=== PATIENT | female | born 1955 | race Caucasian/White ===

== ENCOUNTER 2017-05-06 05:39 | Inpatient (IN) | payer MEDICARE ==
--- NOTE | 2017-05-01 17:10 | HP ---
HISTORY AND PHYSICAL: DATE OF ADMISSION/SURGERY: 05/06/17 DATE OF OFFICE VISIT: 04/30/17 SURGEON: Tamara Ferraro MD * (DICTATED BY CEDRIC COHEN) PROCEDURE: Left total knee arthroplasty. CHIEF COMPLAINT: Left knee pain. HISTORY OF PRESENT ILLNESS: Ms. Mora is a 61-year-old female with complaints of left knee pain. She has failed conservative management and elected to proceed with a left total knee arthroplasty, which is scheduled for 05/06/[address] Ferraro. PAST MEDICAL HISTORY: Epilepsy, hypothyroidism, history of breast cancer, depression, anxiety. PAST SURGICAL HISTORY: Left breast surgery, left temporal lobectomy, and valgus nerve stimulator. CURRENT MEDICATIONS: 1. Methimazole 10 mg daily. 2. Lamotrigine 200 mg twice daily. 3. Multivitamin. 4. Zonisamide 400 mg daily. 5. Gabapentin 600 mg 3 times a day. 6. Viibryd 40 mg every morning. 7. Latuda 40 mg every day. 8. Exemestane 25 mg daily. 9. Naproxen 500 mg twice daily. 10. Percocet 10/325 as needed. ALLERGIES: To PENICILLIN, KEFLEX, and CODEINE causes vomiting. FAMILY HISTORY: Cancer and heart disease. SOCIAL HISTORY: She is a 61-year-old female. She lives with her . She says she smokes less than a half a pack a day, uses occasional alcohol. Denies use of drugs. REVIEW OF SYSTEMS: A complete 14-point review of systems was reviewed with the patient, it was positive for seizure disorder, hypothyroidism. She denies a history of DVT, PE, hepatitis C, HIV, or anesthesia problems. PHYSICAL EXAMINATION GENERAL: She is well developed, well nourished, in no acute distress. VITAL SIGNS: She stands 5 feet 3 inches tall, weighs 203 pounds. Her blood pressure is 104/68, her heart rate is 76. HEENT: Normocephalic, atraumatic. NECK: Supple. No palpable lymph nodes. PULMONARY: Lungs are clear to auscultation bilaterally. CARDIO: Regular rate and rhythm. Strong S1, S2. ABDOMEN: Soft, nontender, and nondistended. MUSCULOSKELETAL: Left lower extremity, the skin is intact. There are no open wounds or abrasions. She has some tenderness over the medial and lateral joint line. 10 to 120 degrees of flexion. 2+ dorsalis pedis pulses. Her lower extremity muscle group strengths are intact at 5/5. She has intact sensation. NEUROLOGICAL: She is alert and oriented x3. Cranial nerves II through XII are intact. ASSESSMENT AND PLAN: Ms. Mora is a 61-year-old female with complaints of left knee pain secondary to end-stage osteoarthritis. She has failed conservative management and elected to proceed with a left total knee arthroplasty, which is scheduled for 05/06/[address] Ferraro discussed the risks and benefits of the surgery at today's visit, and all of her questions were answered. Coumadin was sent to her pharmacy for postoperative DVT prophylaxis. She has a prescription for Percocet and Colace at home. She will follow up with Dr. Ferraro in 2 weeks after the surgery. CEDRIC COHEN [id number]/[facility] #: [id number] HALIE
[~2017-05-06 05:39] MED LIST: Buffered Lidocaine 0.9% SYRIN* 5 ML/SYR SYRINGE INTRADERM ONE
--- OUTSIDE RECORDS SUMMARY | 2017-05-06 05:44 | XMS REPORT ---
:1955 External Reference #:[id number] Author Organization [facility] Address [address] [address] Phone [phone] Care Team Providers Name Role Phone Suri Hodge MD Primary Care Physician Unavailable Payers Type Date Identification Numbers Payment Provider Subscriber Health Maintenance Effective: Policy Number: Medicare Junior Roger (O) 04/28/2015 [id number] o Group Number: [id number] [address] [address] PayID: [id number] [place] [address] Problems Date Description Provider Status Onset: 10/22/2011 Multiple joint pain Caitlin Ng M.D., FACP Active Onset: 10/22/2011 Seizure Caitlin Ng M.D., FACP Active Onset: 10/22/2011 Pure hypercholesterolemia Caitlin Ng M.D., FACP Active Onset: 10/22/2011 Malaise and fatigue Caitlin Ng M.D., FACP Active Onset: 10/22/2011 Benign essential hypertension Caitlin Ng M.D., FACP Active Onset: 10/22/2011 Depressive disorder Caitlin Ng M.D., FACP Active Onset: 04/07/2017 Localized, primary osteoarthritis Tamara Ferraro M.D. 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 Cigarette Use Patient is a current cigarette smoker, smokes every day Cigarette Use Pack Years - 36 ETOH Use Occasionally consumes alcohol Smoking Patient is a current smoker, smokes every day Exercise Type/Frequency Exercises regularly Allergies, Adverse Reactions, Alerts Date Description Reaction Status Severity Comments 10/22/2011 Penicillin Urticaria active Moderate to Severe 10/22/2011 Keflex Urticaria active Moderate to Severe 11/05/2011 Codeine Nausea and Vomiting active Mild to Moderate Medications Medication Date Status Form Strength Qnty SIG Indications Ordering Provider Coumadin 04/30 Active Tablets 2mg 90tab take 1-3 s tabs by Ronan, mouth at 5 M.D. at night as directed Methimazole 12/10 Active Tablets 10mg 90tab 1 po qd- 242.90 Caitlin s mendy Lebron M.D., 7.5mg FACP Lamotrigine Active Tablets 200mg 90tab 1 po bid Unknown /0000 s Multi-Vitamin Active Tablets 1 po qd Unknown / Zonisamide Active Capsules 400mg Unknown /0000 Gabapentin Active Tablets 600mg take one Unknown 0000 tablet by mouth three times a day Viibryd Active Tablets 40mg take 1 tab Unknown /0000 every in the morning Latuda Active Tablets 40mg 1 by mouth Unknown /0000 every day Examestane Active 25mg Unknown /0000 Naproxen Active Tablets 500mg 1 tablet Unknown /0000 with food by mouth twice a day Oxycodone-Acetamino Active Tablets 10-325mg 90tab take 1 Tamara s tablet by Ronan, mouth M.D. every 6 hours as needed for pain Bactrim DS 04/23 Hx Tablets 800-160mg 6tabs take 1 by mouth Ronan, - twice a M.D. 04/29 day for days Vimpat Hx Tablets 50mg 2 po bid Unknown /0000 - 04/04 Fluoxetine Hx Capsules 20mg 30cap 1 po qd Unknown /0000 s - 04/04 Fluoxetine Hx Capsules 10mg 90cap 1 by mouth Unknown /0000 s once daily - 04/04 Citalopram Hx Tablets 10mg 90tab 1 po qd Unknown Hydrobromide /0000 s - 04/04 Dexmethylphenidate Hx Tablets 10mg 30tab take 1 Unknown HCL /0000 s tablet by - mouth 04/04 daily for attention deficit disorder. Amphetamine/Dextroa Hx Tablets 5mg Unknown mphetamine / - 04/04 Clonazepam Hx Tablets 0.5mg 60tab 1 po q Am, Unknown /0000 s 1/2 tab at - noon, 2 04/04 tabs at Fish Oil Hx Capsules 1000mg 1 po qd Unknown - 04/04 Vit D3 Hx Unknown / - 04/04 Aspirin Hx Tablets 325mg 1 po qd - 04/04 Ranitidine HCL Hx Tablets 150mg 28tab take one Unknown /0000 s tablet by - mouth 04/04 twice day Immunizations CPT Code Status Date Vaccine Lot # [id number] Given 12/10/2005 Tetanus And Diptheria (Td) For Adult Use Preservative Free 00069 Given 12/10/2005 Tetanus And Diptheria (Td) For Adult Use Preservative Free Vital Signs Date Vital Result Comment 04/30/2017 Height 63 inches 5'3" Weight 203.00 lb Heart Rate 76 /min BP Systolic 104 mmHg BP Diastolic 68 mmHg Body Temperature 98.5 F BMI (Body Mass Index) 36.0 kg/m2 04/07/2017 Height 62 inches 5'2" Weight 175.00 lb per patient BP Systolic 118 mmHg BP Diastolic 82 mmHg Respiratory Rate 14 /min Body Temperature 99.3 F Pain Level 8 BMI (Body Mass Index) 32.0 kg/m2 12/11/2011 Height 62 inches 5'2" Weight 182.00 lb Heart Rate 88 /min BP Systolic Sitting 128 mmHg BP Diastolic Sitting 70 mmHg BMI (Body Mass Index) 33.3 kg/m2 12/04/2011 Height 62 inches 5'2" Weight 182.00 lb Heart Rate 88 /min BP Systolic Sitting 130 mmHg BP Diastolic Sitting 70 mmHg BMI (Body Mass Index) 33.3 kg/m2 11/05/2011 Height 62 inches 5'2" Weight 181.00 lb Heart Rate 88 /min BP Systolic Sitting 118 mmHg BP Diastolic Sitting 80 mmHg BMI (Body Mass Index) 33.1 kg/m2 10/22/2011 Height 62 inches 5'2" Weight 178.50 lb Heart Rate 96 /min BP Systolic Sitting 128 mmHg BP Diastolic Sitting 80 mmHg Body Temperature 99.1 F BMI (Body Mass Index) 32.6 kg/m2 Results Test Date Test Result H/L Range Note CBC Auto Diff 04/23/2017 White Blood Count 12.6 10^3/uL High 3.5-10.8 Red Blood Count 4.31 10^6/uL 4.0-5.4 Hemoglobin 13.5 g/dL 12.0-16.0 Hematocrit 40 % 35-47 Mean Corpuscular Volume 92 fL 80-97 Mean Corpuscular Hemoglobin 31 pg 27-31 Mean Corpuscular HGB Conc 34 g/dL 31-36 Red Cell Distribution Width 15 % 10.5-15 Platelet Count 435 10^3/uL 150-450 Mean Platelet Volume 7 um3 Low 7.4-10.4 Abs Neutrophils 9.4 10^3/uL High 1.5-7.7 Abs Lymphocytes 2.3 10^3/uL 1.0-4.8 Abs Monocytes 0.7 10^3/uL 0-0.8 Abs Eosinophils 0.1 10^3/uL 0-0.6 Abs Basophils 0.1 10^3/uL 0-0.2 Abs Nucleated RBC 0 10^3/uL Granulocyte % 74.6 % 38-83 Lymphocyte % 18.2 % Low 25-47 Monocyte % 5.3 % 1-9 Eosinophil % 1.1 % 0-6 Basophil % 0.8 % 0-2 Nucleated Red Blood Cells % 0 Comp Metabolic Panel 04/23/2017 Sodium 136 mmol/L 133-145 Potassium 4.2 mmol/L 3.5-5.0 Chloride 103 mmol/L 101-111 Co2 Carbon Dioxide 28 mmol/L 22-32 Anion Gap 5 mmol/L 2-11 Glucose 88 mg/dL 70-100 Blood Urea Nitrogen 17 mg/dL 6-24 Creatinine 0.86 mg/dL 0.51-0.95 BUN/Creatinine Ratio 19.8 8-20 Calcium 9.2 mg/dL 8.6-10.3 Total Protein 6.5 g/dL 6.4-8.9 Albumin 4.0 g/dL 3.2-5.2 Globulin 2.5 g/dL 2-4 Albumin/Globulin Ratio 1.6 1-3 Total Bilirubin 0.30 mg/dL 0.2-1.0 Alkaline Phosphatase 89 U/L 34-104 Alt 11 U/L 7-52 Ast 15 U/L 13-39 Egfr Non- 67.3 >60 Egfr 86.6 >60 1 Type & Screen 04/23/2017 Patient Blood Type A Positive Antibody Screen NEGATIVE Inr/Protime 04/23/2017 Inr 0.93 0.77-1.02 2 Laboratory test finding 04/23/2017 Partial Thrombo Time 31.0 seconds 26.0 -36.3 PTT Urinalysis Profile 04/23/2017 Urine Color Yellow Urine Appearance Cloudy Urine Specific Cameron 1.012 1.010-1.030 Urine pH 7.0 5-9 Urine Urobilinogen Negative Negative Urine Ketones Negative Negative Urine Protein Negative Negative Urine Leukocytes Trace Negative Urine Blood Negative Negative Urine Nitrite Positive Negative Urine Bilirubin Negative Negative Urine Glucose Negative Negative Urine White Blood Cell Trace(0-5/hpf) Absent Urine Red Blood Cell Trace(0-2/hpf) Absent Urine Bacteria 1+ Absent Urine Squamous Epithelial Cell Present Absent Urine Yeast Present Absent Urine Culture And 04/23/2017 Urine Culture SEE RESULT BELOW 3 Sensitivities Laboratory test finding 01/02/2012 Thyroxine Free 0.73 ng/dL 0.61-1.24 T3 Total 2.00 NG/ML High 0.5-1.7 T3 Free 3.42 pg/mL 2.39-6.79 TSH 0.07 MIU/ML Low 0.34-5.60 Laboratory test finding 12/27/2011 TSH 0.09 MIU/ML Low 0.34-5.60 Thyroxine Free 0.80 ng/dL 0.61-1.24 CBC With Manual Diff 12/27/2011 White Blood Count 6.5 CUMM 4.8-10.8 Red Cell Count 4.54 CUMM 4.2-5.4 Hemoglobin 14.1 g/dL 12.0-16.0 Hematocrit 41 % 35-47 Mean Corpuscular Volume 89 um3 79-97 Mean Corpuscular Hemoglob 31 pg 27-31 Mean Corpuscular HGB Cone 35 g/dL 32-36 Redcell Distribution WDTH 14 % 10.5-15 Platelet Count 437 CUMM 150-450 Mean Platelet Volume 7.2 um3 Low 7.4-10.4 Absolute Neutrophil Count 3.0 1.5-7.7 Polysegmented Neutrophil 39 % 38-83 Lymphocyte 41 % 25-47 Monocyte 15 % High 0-13 Eosinophil 4 % 0-6 Basophil 1 % 0-2 RBC Morphology NORMAL Laboratory test finding 11/18/2011 Rheumatoid Factor < 15 IU/mL < 15 4 Manual Differential 11/18/2011 Polysegmented Neutrophil 29 % Low 38-83 Band Neutrophil 1 % 0-8 Lymphocyte 61 % High 25-47 Monocyte 7 % 0-13 Eosinophil 1 % 0-6 Basophil 1 % 0-2 Hypochromasia SLIGHT Manual Diff Comments (SEE NOTE) 5 CBC Auto Diff 11/18/2011 White Blood Count 6.4 CUMM 4.8-10.8 Red Cell Count 3.61 CUMM Low 4.2-5.4 Hemoglobin 11.3 g/dL Low 12.0-16.0 Hematocrit 32 % Low 35-47 Mean Corpuscular Volume 88 um3 79-97 Mean Corpuscular Hemoglob 31 pg 27-31 Mean Corpuscular HGB Cone 35 g/dL 32-36 Redcell Distribution WDTH 14 % 10.5-15 Platelet Count 189 CUMM 150-450 Mean Platelet Volume 7.5 um3 7.4-10.4 Absolute Neutrophil Count 2.4 1.5-7.7 Laboratory test 11/18/2011 C Reactive Protein < 0.5 mg/dL Less Than 0.5 finding Basic Metabolic Panel 11/18/2011 Sodium 135 mmol/L 135-145 Potassium 3.9 mmol/L 3.5-5.0 Chloride 103 mmol/L 101-111 Co2 (Carbon Dioxide) 27.0 mmol/L 22-32 Anion Gap 5.0 mmol/L 2-11 6 Glucose 106 mg/dL High 70-100 BUN 9 mg/dL 6-24 Creatinine 0.8 mg/dL 0.50-1.40 One Over Creatinine 1.25 BUN/Creatinine Ratio 11.3 8-20 Calcium 9.6 mg/dL 8.1-9.9 eGFR Non- 74.5 > 60 eGFR 95.8 > 60 7 Laboratory test finding 11/05/2011 Thyroid Stimulating Igg <1.0 <= 1.3 8 Thyroxine Free 1.05 ng/dL 0.61-1.24 TSH 0.02 MIU/ML Low 0.34-5.60 T-Uptake 30 % 20 - 37 9 Comp Metabolic Panel 10/22/2011 Sodium 138 mmol/L 135-145 Potassium 5.3 mmol/L High 3.5-5.0 Chloride 103 mmol/L 101-111 Co2 (Carbon Dioxide) 29.0 mmol/L 22-32 Anion Gap 6.0 mmol/L 2-11 10 Glucose 103 mg/dL High 70-100 BUN 5 mg/dL Low 6-24 Creatinine 0.7 mg/dL 0.50-1.40 One Over Creatinine 1.42 BUN/Creatinine Ratio 7.1 Low 8-20 Calcium 10.0 mg/dL High 8.1-9.9 Total Protein 6.3 GM/DL 6.2-8.1 Albumin 4.1 GM/DL 3.6-5.4 Globulin 2.2 GM/DL 2-4 Albumin/Globulin Ratio 1.9 1-3 Bilirubin Total 0.4 mg/dL 0.4-1.5 11 Alkaline Phosphatase 98 U/L 30-110 Alt (SGPT) 21 U/L 14-54 Ast (Sgot) 18 U/L 12-42 eGFR Non- 86.9 > 60 eGFR 111.7 > 60 12 Laboratory test 10/22/2011 C Reactive Protein < 0.5 mg/dL Less Than 0.5 finding CBC With Manual Diff 10/22/2011 White Blood Count 7.3 CUMM 4.8-10.8 Red Cell Count 4.57 CUMM 4.2-5.4 Hemoglobin 14.0 g/dL 12.0-16.0 Hematocrit 41 % 35-47 Mean Corpuscular Volume 90 um3 79-97 Mean Corpuscular Hemoglob 31 pg 27-31 Mean Corpuscular HGB Cone 34 g/dL 32-36 Redcell Distribution WDTH 14 % 10.5-15 Platelet Count 475 CUMM High 150-450 Mean Platelet Volume 7.5 um3 7.4-10.4 Absolute Neutrophil Count 3.7 1.5-7.7 Polysegmented Neutrophil 61 % 38-83 Lymphocyte 27 % 25-47 Monocyte 6 % 0-13 Eosinophil 4 % 0-6 Basophil 2 % 0-2 Anisocytosis SLIGHT Laboratory test finding 10/22/2011 TSH 0.04 MIU/ML Low 0.34-5.60 Laboratory test finding 02/24/2007 T3 Free 3.32 pg/mL 2.39-6.79 Free Thyroxine 0.74 NG/ML 0.61-1.24 13 T3 Total 1.60 NG/ML 0.5-1.7 TSH 0.18 MIU/ML Low 0.34-5.60 1 Because ethnic data is not always readily available, this report includes an eGFR for both -Americans and non- Americans. The National Kidney Disease Education Program (NKDEP) does not endorse the use of the MDRD equation for patients that are not between the ages of 18 and 70, are , have extremes of body size, muscle mass, or nutritional status, or are non- or non-. According to the National Kidney Foundation, irrespective of diagnosis, the stage of the disease is based on the level of kidney function: Stage Description GFR(mL/min/1.73 m(2)) 1 Kidney damage with normal or decreased GFR 90 2 Kidney damage with mild decrease in GFR 60-89 3 Moderate decrease in GFR 30-59 4 Severe decrease in GFR 15-29 5 Kidney failure <15 (or dialysis) 2 Please note the change in INR reference range effective 17. 3 SEE RESULT BELOW Name: PAULO EDWARDS : [address]: Tamara Ferraro MD Acct: [id number] Unit: [id number] AGE: 61 Location: [facility] Re04/23/17 SEX: F Status: REG REF SPEC: [id number] BRIEN: 04/23/[address] [facility] [address]: Tamara Ferraro MD REQ: [id number] RECD: 04/23/17 STATUS: EDY LOO DR: Suri Hodge MD _ SOURCE: URINE SPDESC: ORDERED: Urine Culture QUERIES: Urine Source: Random Procedure Result Reported Site Urine Culture Final 04/25/17- 0915 ML Organism 1 ESCHERICHIA COLI [place] Count >100,000 (Many) CFU/ML Organism 2 PROTEUS SPECIES [place] Count 1-10,000 (Few) CFU/ML 1. ESCHERICHIA COLI M.I.C. RX --------- ------ Ampicillin 8 S Cefazolin <=4 S Cefepime <=1 S Ceftriaxone <=1 S Ciprofloxacin <=0.25 S Gentamicin <=1 S Levofloxacin <=0.12 S Meropenem <=0.25 S Nitrofurantoin <=16 S Tetracycline <=1 S Pipercillin/Tazobactam <=4 S Trimethoprim/Sulfamethoxazole <=20 S Amoxicillin/Clavulanic Acid <=2 S Aztreonam <=1 S Contact the Microbiology Department for any additional antibiotic reporting. * ML - [facility] ([facility]) . END OF REPORT * ML=Testing performed at [facility] DEPARTMENT OF PATHOLOGY, [address] [place] [address] Max Yu M.D. Director [facility] # [id number] 4 Test Performed by: [address] [address] [employer] Worker: Tor Parsons III, M.D. 5 REVIEWED BY MIKE TEJEDA MD CBC and smear reviewed. Inverted PMN/lymph ratio noted. No blasts seen. 6 Anion gap measurement may be of limited value in the presence of any alkalosis, especially in a combined acid base disorder. . 7 Because ethnic data is not always readily available, this report includes an eGFR for both -Americans and non- Americans. The National Kidney Disease Education Program (NKDEP) does not endorse the use of the MDRD equation for patients that are not between the ages of 18 and 70, are , have extremes of body size, muscle mass, or nutritional status, or are non- or non-. According to the National Kidney Foundation, irrespective of diagnosis, the stage of the disease is based on the level of kidney function: Stage Description GFR(mL/min/1.73 m(2)) 1 Kidney damage with normal or decreased GFR 90 2 Kidney damage with mild decrease in GFR 60-89 3 Moderate decrease in GFR 30-59 4 Severe decrease in GFR 15-29 5 Kidney failure <15 (or dialysis) 8 INFCE Result Units: TSI index Test Performed by: [address] [address] [employer] Worker: Tor Parsons III, M.D. 9 Test Performed by: [place] [address] [employer] Worker: Tor Parsons III, M.D. 10 Anion gap measurement may be of limited value in the presence of any alkalosis, especially in a combined acid base disorder. . 11 A metabolite of Naproxen, O-desmethylnaproxen, has been shown to interfere with the Jendrassik-Bertin method for measuring total bilirubin. Samples from patients who have taken Naproxen have shown spurious elevation in total bilirubin levels. 12 Because ethnic data is not always readily available, this report includes an eGFR for both -Americans and non- Americans. The National Kidney Disease Education Program (NKDEP) does not endorse the use of the MDRD equation for patients that are not between the ages of 18 and 70, are , have extremes of body size, muscle mass, or nutritional status, or are non- or non-. According to the National Kidney Foundation, irrespective of diagnosis, the stage of the disease is based on the level of kidney function: Stage Description GFR(mL/min/1.73 m(2)) 1 Kidney damage with normal or decreased GFR 90 2 Kidney damage with mild decrease in GFR 60-89 3 Moderate decrease in GFR 30-59 4 Severe decrease in GFR 15-29 5 Kidney failure <15 (or dialysis) 13 PLEASE NOTE NEW REFERENCE RANGES. Procedures Date CPT Code Description Status 12/04/2011 93737 EKG Tracing & Interpretation Completed 07/13/2008 Mammogram Completed 06/14/2008 28222 EKG Tracing & Interpretation Completed 05/21/2007 Bone Mineral Density Test Completed 05/21/2007 Mammogram Completed 04/16/2007 18279 EKG Tracing & Interpretation Completed 12/10/2005 66175 EKG Tracing & Interpretation Completed Encounters Type Date Location Provider CPT E/M Dx Office Visit 04/07/2017 [facility] Tamara Ferraro M.D. 96461 M25.562 11:00a [facility] [place] M25.462 M17.12 Office Visit 12/11/2011 11:40a [facility] Caitlin Ng M.D., 93526 242.90 - [place] FACP Office Visit 12/04/2011 3:40p [facility] Caitlin Ng M.D., 52657 V72.84 - [place] FACP 780.39 242.90 305.1 Office Visit 11/05/2011 1:20p [facility] Caitlin Ng M.D., 34577 242.90 - [place] FACP Office Visit 10/22/2011 9:40a [facility] Caitlin Ng M.D., 97100 719.49 - [place] FACP 088.81 311 Office Visit 06/14/2008 9:45a DO Not Use [facility] Caitlin Berenice, 35756 V72.31 M.D., FACP 780.39 272.0 780.79 401.1 Office Visit 08/03/2007 9:00a DO Not Use [facility] Caitlin Berenice, 93153 272.4 M.D., FACP 401.1 Office Visit 06/02/2007 1:45p DO Not Use [facility] Caitlin Berenice, 12297 272.0 M.D., FACP 277.7 Office Visit 04/16/2007 10:45a DO Not Use [facility] Caitlin Berenice, 62789 V72.31 M.D., FACP 780.79 272.0 780.39 311 Office Visit 12/10/2005 1:45p DO Not Use [facility] Caitlin Berenice, 11339 V72.31 M.D., FACP 277.7 Plan of Care Future Appointment(s):05/06/2017 1:00 pm - CEDRIC Mahoney at [facility]05/06/2017 1:00 pm - Williams Haq PA-C at [facility]05/06/2017 1:00 pm - CEDRIC Sanchez at [facility]05/06/2017 1:00 pm - Tamara Ferraro M.D. at [facility]05/19/2017 8:00 am - Tamara Ferraro M.D. at [facility]04/30/2017 - Tamara Ferraro M.D.M25.562 Pain in left kneeFollow up:Follow up: 2 weeks after nmiaibmW74.462 Effusion, left kneeM17.12 Unilateral primary osteoarthritis, left knee
--- OUTSIDE RECORDS SUMMARY | 2017-05-06 05:44 | XMS REPORT ---
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 Cigarette Use Patient is a [...] Form Strength Qnty SIG Indications Ordering Provider Methimazole 12/10 Active Tablets 10mg 90tab 1 po qd- 242.90 Caitlin s mendy Lebron M.D., 7.5mg FACP Lamotrigine Active Tablets 200mg 90tab 1 po bid Unknown /0000 s Multi-Vitamin Active Tablets 1 po qd Unknown /0000 Zonisamide Active Capsules 400mg Unknown /0000 Gabapentin Active Tablets 600mg take one Unknown /0000 tablet by mouth three times a day Viibryd Active Tablets 40mg take 1 tab Unknown /0000 every in the morning Latuda Active Tablets 40mg 1 by mouth Unknown /0000 every day Examestane Active 25mg Unknown /0000 Naproxen Active Tablets 500mg 1 tablet Unknown /0000 with food by mouth twice a day Oxycodone-Acetamino Active Tablets 10-325mg 90tab take 1 Tamara phen /0000 s tablet by Ronan, mouth M.D. every 6 hours as needed for pain Vimpat Hx Tablets 50mg 2 po bid [...] s tablet by - mouth 04/04 twice daily for attention deficit disorder. Amphetamine/Dextroa Hx Tablets 5mg Unknown mphetamine /0000 - 04/04 Clonazepam Hx Tablets 0.5mg 60tab 1 po q Am, Unknown /0000 s 1/2 tab at - noon, 2 04/04 tabs at Fish Oil Hx Capsules 1000mg 1 po qd - 04/04 Vit D3 Hx Unknown /0000 - 04/04 Aspirin Hx Tablets 325mg 1 po qd - 04/04 Ranitidine HCL Hx Tablets 150mg 28tab take one Unknown s tablet by - mouth 04/04 twice day Immunizations CPT Code Status Date Vaccine Lot # [id number] Given 12/10/2005 Tetanus And Diptheria (Td) For Adult Use Preservative Free [id number] Given 12/10/2005 Tetanus And Diptheria (Td) For Adult Use Preservative Free Vital Signs Date Vital Result Comment 04/07/2017 Height 62 inches 5'2" Weight 175.00 [...] Test Date Test Result H/L Range Note Laboratory test finding 01/02/2012 Thyroxine Free 0.73 [...] Rheumatoid Factor < 15 IU/mL < 15 1 Manual Differential 11/18/2011 Polysegmented Neutrophil 29 % Low 38-83 Band Neutrophil 1 % 0-8 Lymphocyte 61 % High 25-47 Monocyte 7 % 0-13 Eosinophil 1 % 0-6 Basophil 1 % 0-2 Hypochromasia SLIGHT Manual Diff Comments (SEE NOTE) 2 CBC Auto Diff 11/18/2011 White Blood Count [...] mmol/L 22-32 Anion Gap 5.0 mmol/L 2-11 3 Glucose 106 mg/dL High 70-100 BUN 9 mg/dL 6-24 Creatinine 0.8 mg/dL 0.50-1.40 One Over Creatinine 1.25 BUN/Creatinine Ratio 11.3 8-20 Calcium 9.6 mg/dL 8.1-9.9 eGFR Non- 74.5 > 60 eGFR 95.8 > 60 4 Laboratory test finding 11/05/2011 Thyroid Stimulating Igg <1.0 <= 1.3 5 Thyroxine Free 1.05 ng/dL 0.61-1.24 TSH 0.02 MIU/ML Low 0.34-5.60 T-Uptake 30 % 20 - 37 6 Comp Metabolic Panel 10/22/2011 Sodium 138 mmol/L 135-145 Potassium 5.3 mmol/L High 3.5-5.0 Chloride 103 mmol/L 101-111 Co2 (Carbon Dioxide) 29.0 mmol/L 22-32 Anion Gap 6.0 mmol/L 2-11 7 Glucose 103 mg/dL High 70-100 BUN 5 mg/dL Low 6-24 Creatinine 0.7 mg/dL 0.50-1.40 One Over Creatinine 1.42 BUN/Creatinine Ratio 7.1 Low 8-20 Calcium 10.0 mg/dL High 8.1-9.9 Total Protein 6.3 GM/DL 6.2-8.1 Albumin 4.1 GM/DL 3.6-5.4 Globulin 2.2 GM/DL 2-4 Albumin/Globulin Ratio 1.9 1-3 Bilirubin Total 0.4 mg/dL 0.4-1.5 8 Alkaline Phosphatase 98 U/L 30-110 Alt (SGPT) 21 U/L 14-54 Ast (Sgot) 18 U/L 12-42 eGFR Non- 86.9 > 60 eGFR 111.7 > 60 9 Laboratory test 10/22/2011 C Reactive Protein < [...] pg/mL 2.39-6.79 Free Thyroxine 0.74 NG/ML 0.61-1.24 10 T3 Total 1.60 NG/ML 0.5-1.7 TSH 0.18 MIU/ML Low 0.34-5.60 1 Test Performed by: [place] [address] Hairspring Studder: Tor Parsons III, M.D. 2 REVIEWED BY MIKE TEJEDA MD CBC and smear reviewed. Inverted PMN/lymph ratio noted. No blasts seen. 3 Anion gap measurement may be of limited value in the presence of any alkalosis, especially in a combined acid base disorder. . 4 Because ethnic data is not always readily [...] 15-29 5 Kidney failure <15 (or dialysis) 5 INFCE Result Units: TSI index Test Performed by: [address] [address] Hairspring Studder: Tor Parsons III, M.D. 6 Test Performed by: [address] [address] Hairspring Studder: Tor Parsons III, M.D. 7 Anion gap measurement may be of limited value in the presence of any alkalosis, especially in a combined acid base disorder. . 8 A metabolite of Naproxen, O-desmethylnaproxen, has been shown to interfere with the Jendrassik-Bertin method for measuring total bilirubin. Samples from patients who have taken Naproxen have shown spurious elevation in total bilirubin levels. 9 Because ethnic data is not always readily [...] 15-29 5 Kidney failure <15 (or dialysis) 10 PLEASE NOTE NEW REFERENCE RANGES. Procedures Date CPT Code Description Status 12/04/2011 45770 EKG Tracing & Interpretation Completed 07/13/2008 Mammogram Completed 06/14/2008 26528 EKG Tracing & Interpretation Completed 05/21/2007 Bone Mineral Density Test Completed 05/21/2007 Mammogram Completed 04/16/2007 99798 EKG Tracing & Interpretation Completed 12/10/2005 75530 EKG Tracing & Interpretation Completed Encounters Type Date Location Provider CPT E/M Dx Office Visit 04/07/2017 [facility] Tamara Ferraro M.D. 36443 M25.562 11:[facility] M25.462 M17.12 Office Visit 12/11/2011 11:40a [facility] Caitlin Ng M.D., 34034 242.90 - [place] FACP Office Visit 12/04/2011 3:40p [facility] Caitlin Ng M.D., 34008 V72.84 - [place] FACP 780.39 242.90 305.1 Office Visit 11/05/2011 1:20p [facility] Caitlin Ng M.D., 86718 242.90 - [place] FACP Office Visit 10/22/2011 9:40a [facility] Caitlin Ng M.D., 89195 719.49 - [place] FACP 088.81 311 Office Visit 06/14/2008 9:45a DO Not Use [facility] Caitlin Berenice, 70293 V72.31 M.D., FACP 780.39 272.0 780.79 401.1 Office Visit 08/03/2007 9:00a DO Not Use [facility] Caitlin Berenice, 46774 272.4 M.D., FACP 401.1 Office Visit 06/02/2007 1:45p DO Not Use [facility] Caitlin Berenice, 30061 272.0 M.D., FACP 277.7 Office Visit 04/16/2007 10:45a DO Not Use [facility] Caitlin Berenice, 52102 V72.31 M.D., FACP 780.79 272.0 780.39 311 Office Visit 12/10/2005 1:45p DO Not Use [facility] Caitlin Berenice, 08907 V72.31 M.D., FACP 277.7 Plan of Care Future Appointment(s):05/19/2017 8:00 am - Tamara Ferraro M.[facility]04/30/2017 8:45 am - Tamara Ferraro M.D. at [facility]04/07/2017 - Tamara Ferraro M.D.M25.562 Pain in left kneeM25.462 Effusion, left kneeM17.12 Unilateral primary osteoarthritis, left kneeFollow up:Follow up: 7-10 days before surgery
[2017-05-06] MEDS ORDERED: Famotidine IV* 10 MG/ML 2 ML (20 mg) IV ONE (06:00)
[2017-05-06] MEDS ORDERED: Levalbuterol 0.63MG/3ML NEB* UNIT OF USE INH ONE (06:00)
[2017-05-06] MEDS ORDERED: Vancomycin(*) 1,000 MG in NS 0.9% 250 ML* 250 ML IVPB ONE ×3 (06:00→16:00)
[2017-05-06] MEDS ORDERED: Dexamethasone IV* 4 MG/ML 1 ML (4 MG) IV SLOW PU ONE (06:00)
[2017-05-06] MEDS ORDERED: Levalbuterol 1.25MG/0.5ML NEB ONE (06:06)
[2017-05-06] MEDS ORDERED: Buffered Lidocaine 0.9% SYRIN* 5 ML/SYR SYRINGE ONE (06:06)
[2017-05-06] MEDS ORDERED: Famotidine IV* 10 MG/ML 2 ML (20 mg) ONE (06:06)
[2017-05-06] MEDS ORDERED: Dexamethasone IV* 4 MG/ML 1 ML (4 MG) ONE (06:06)
[2017-05-06] MEDS ORDERED: fentaNYL* 50 MCG/ML 2 ML VIAL (100 MCG VIAL) ONE ×4 (07:16→11:01)
[2017-05-06] MEDS ORDERED: Bupivacaine 0.5% SDV PF* 10-30ML VIAL ONE ×3 (07:16→08:25)
[2017-05-06] MEDS ORDERED: KETAMINE HCL* 50 MG/ML 10 ML VIAL ONE (07:16)
[2017-05-06] MEDS ORDERED: Ondansetron INJ* 2 MG/ML VIAL ONE (07:16)
[2017-05-06] MEDS ORDERED: Propofol* 10 MG/ML 20 ML BTL IV PUSH ONE (07:16)
[2017-05-06] MEDS ORDERED: Midazolam* 1 MG/ML 10 ML VIAL (10 MG) ONE (07:16)
[2017-05-06] MEDS ORDERED: Morphine PF AMP (0.5MG/ML)* 5 MG/10 ML AMP ONE (07:16)
[2017-05-06] MEDS ORDERED: Atracurium* 10 MG/ML 10 ML VIAL ONE (07:30)
[2017-05-06] MEDS ORDERED: EPHEDrine (Pressors)* 50 MG/ML VIAL ONE (07:31)
[2017-05-06] MEDS ORDERED: fentaNYL* 50 MCG/ML 5 ML VIAL (250 MCG VIAL) ONE (07:32)
--- NOTE | 2017-05-06 08:13 | RAD ---
Indication: Smoker. Single frontal view of the chest performed at 0545 hours was reviewed. No prior study is available for comparison. No mediastinal shift is noted. Heart is of normal size and configuration. Lung roe appear clear. IMPRESSION: NO ACTIVE CARDIOPULMONARY DISEASE IS NOTED.
[2017-05-06] MEDS ORDERED: Glycopyrrolate IV* 0.2 MG/ML 1 ML VIAL ONE (08:22)
[2017-05-06] MEDS ORDERED: Ondansetron INJ* 2 MG/ML VIAL IV PRN ×2 (08:37→09:21)
[2017-05-06] MEDS ORDERED: Scopolamine 1.5 mg* PATCH TRANSDERM PRN (08:37)
[2017-05-06] MEDS ORDERED: DiMENhydriNATE IV* 50 MG/ML VIAL IV PUSH PRN (08:37)
[2017-05-06] MEDS ORDERED: Naloxone* 0.4 MG/ML 1 ML VIAL IV PRN (08:37)
[2017-05-06] MEDS ORDERED: Phenylephrine INJ* 10 MG/ML 1 ML VIAL (10 MG) ONE (08:39)
[2017-05-06] MEDS ORDERED: Magnesium Hydroxide LIQ* 30 ML UDC PO PRN (09:21)
[2017-05-06] MEDS ORDERED: Morphine INJ* 2 MG/ML 1 ML CARPUJECT IV PRN (09:21)
[2017-05-06] MEDS ORDERED: Polyethylene Glycol 3350* 17 GM PACKET PO PRN (09:21)
[2017-05-06] MEDS ORDERED: Bisacodyl SUPP* 10 MG SUPP PR PRN (09:21)
[2017-05-06] MEDS ORDERED: Acetaminophen TAB* 325 MG PO PRN (09:21)
[2017-05-06] MEDS ORDERED: diPHENhydraMINE IV* 50 MG/ML 1 ml VIAL (BENADRYL) IV PRN (09:21)
[2017-05-06] MEDS ORDERED: oxyCODONE/Acetamin 5/325 MG* TAB PO PRN (09:21)
[2017-05-06] MEDS ORDERED: Ondansetron TAB* 4 MG PO PRN (09:21)
[2017-05-06] MEDS ORDERED: Cyclobenzaprine TAB* 10 MG PO PRN (09:26)
[2017-05-06] MEDS ORDERED: HYDROmorphone INJ* 1 MG/ML CARPUJECT SYRINGE ONE ×2 (10:16→11:13)
[2017-05-06] MEDS: fentaNYL* 50 MCG/ML 2 ML VIAL (100 MCG VIAL) IV PRN ×4 (10:20→11:54)
[2017-05-06] MEDS: HYDROmorphone INJ* 1 MG/ML CARPUJECT SYRINGE IV PRN ×5 (10:36→11:14)
--- NOTE | 2017-05-06 11:48 | RAD ---
Indication: Immediate postop exam following LEFT total knee replacement. Comparison: April 30, 2017 radiographs. Technique: Portable AP and cross table lateral views LEFT knee. Report: Status post total knee replacement. Anterior surgical drain in place. Post-op fluid and gas is seen in the joint space and anterior subcutaneous tissues. Alignment is anatomic. No periprosthetic fracture evident. IMPRESSION: Unremarkable immediate postoperative appearance following LEFT knee replacement.
[2017-05-06] MEDS: oxyCODONE/Acetamin 5/325 MG* TAB PO PRN ×3 (13:19→23:49)
[2017-05-06] MEDS: Morphine INJ* 2 MG/ML 1 ML SYRINGE (TWO MG - NEW SYRINGE VERSION) IV PRN ×5 (13:25→23:50)
[2017-05-06] MEDS: Gabapentin CAP(*) 300 MG PO SCH ×2 (13:41→20:14)
--- NOTE | 2017-05-06 14:22 | CONSULT ---
Subjective Date of Service: 05/06/17 Interval History: Ms. Mora is a 61 yo female who was admitted on 05/06/17 for an elective left total knee surgery. She denies any recent illness or concern prior to admission today. Currently, she reports "terrible pain" and feels as if a "1000 pound person kicked me in the alcantara with a wooden clog." She reports minimal relief from pain meds and states that when she had her temporal lobe surgery many years ago, she was on "heavy doses of morphine." Prior to surgery, she reports she was using Percocet. She reports having a seizure approximately one month ago. Denies fever/chills, CP, SOB, abd pain, n/v. Patient observed moving leg in bed and is able to self-reposition. Family History: Findings - Mother: Hx Breast cancer, Father: Hx Heart Disease Social History: Findings - , lives with , who is HCP. Smokes less than half a PPD Past Medical History: Findings - Seizure disorder, hyperthyroidism with multinodular goiter, history of BrCa, hypercholesterolemia, HTN, depression, anxiety, osteoarthritis Review of Systems - Measurements Intake and Output: Intake and Output Last 24 Hours 05/04/17 05/05/17 05/06/17 05/07/17 06:59 06:59 06:59 06:59 Intake Total 1999 Output Total 325 Balance 1675 Weight 203 lb 4.259 oz Intake: IV Fluids 1999 LR 1999 Output: Gamino 325 - Review of Systems Constitutional Symptoms: Negative: Weakness, Fatigue, Fever Dermatology: Positive: Normal HEENT: Positive: Normal Eyes: Positive: Normal Thyroid: Positive: Goiter - history of multinodular, Primary Hyperthyroidism Pulmonary: Negative: Cough, Respiratory Distress, Shortness of Breath Cardiology: Negative: Chest Pain, Shortness of Breath, Palpitations Gastroenterology: Negative: Abdominal Pain, Nausea, Vomiting Genital - Urinary: Positive: Normal Musculoskeletal: Positive: Joint Pain, Joint Stiffness, Arthritis Endocrinology: Positive: Thyroid Problems Neurology: Positive: Hx of Seizures Negative: Change in Vision, Dizziness, Numbness\\Paresthesiae Psychiatry: Positive: Depression, Anxiety Objective Active Medications: Acetaminophen (Tylenol Tab*) 650 mg PO Q4H PRN PRN Reason: PAIN OR TEMPERATURE Bisacodyl (Dulcolax Supp*) 10 mg OH DAILY PRN PRN Reason: constipation Cyclobenzaprine HCl (Flexeril Tab*) 10 mg PO TID PRN PRN Reason: SPASMS Dimenhydrinate (Dramamine Iv*) 25 mg IV PUSH ONCE PRN PRN Reason: NAUSEA/VOMITING Diphenhydramine HCl (Benadryl Iv*) 12.5 mg IV Q6H PRN PRN Reason: PRURITIS Docusate Sodium (Colace Cap*) 100 mg PO BID [facility] Enoxaparin Sodium (Lovenox(*)) 30 mg SUBCUT Q24H [facility] Exemestane (Aromasin(Nf)) 25 mg PO QAM [facility] Gabapentin (Neurontin Cap(*)) 300 mg PO TID [facility] Last Admin: 05/06/17 13:41 Dose: Not Given Lactated Ringer's (Lactated Ringers 1000 Ml Bag*) 1,000 mls @ 100 mls/hr IV PER RATE [facility] Last Admin: 05/06/17 12:30 Dose: 100 mls/hr Lactulose (Lactulose*) 30 ml PO Q6H PRN PRN Reason: constipation Lurasidone HCl (Latuda) 40 mg PO QAM [facility] Magnesium Hydroxide (Milk Of Magnesia Liq*) 30 ml PO BID [facility] Magnesium Hydroxide (Milk Of Magnesia Liq*) 30 ml PO Q6H PRN PRN Reason: constipation Methimazole (Tapazole Tab*) 7.5 mg PO QAM [facility] Morphine Sulfate (Morphine Inj (Syringe)*) 2 mg IV Q2H PRN PRN Reason: PAIN Last Admin: 05/06/17 13:25 Dose: 2 mg Ondansetron HCl (Zofran Inj*) 4 mg IV Q6H PRN PRN Reason: nausea Ondansetron HCl (Zofran Tab*) 4 mg PO Q6H PRN PRN Reason: NAUSEA Oxycodone HCl (Roxycodone Tab*) 10 mg PO Q4H PRN PRN Reason: SEVERE PAIN Oxycodone/Acetaminophen (Percocet 5/325 Tab*) 2 tab PO Q4H PRN PRN Reason: PAIN Last Admin: 05/06/17 13:19 Dose: 2 tab Oxycodone/Acetaminophen (Percocet 5/325 Tab*) 1 tab PO Q4H PRN PRN Reason: PAIN Pharmacy Profile Note (Coumadin Daily Reminder*) 1 note FOLLOW UP 1700 [facility] Polyethylene Glycol/Electrolytes (Miralax*) 17 gm PO DAILY PRN PRN Reason: Constipation Vilazodone HCl (Viibryd (Nf)) 40 mg PO QPM [facility] Warfarin Sodium (Coumadin Tab(*)) 6 mg PO ONCE@1700 ONE PRN Reason: Protocol Stop: 05/06/17 17:01 Zonisamide (Zonegran(Nf)) 400 mg PO QPM [facility] Vital Signs - 8 hr 05/06/17 05/06/17 05/06/17 10:16 10:20 10:25 Temperature 98.2 F Pulse Rate 89 102 88 Respiratory 18 16 16 Rate Blood Pressure 142/96 148/97 152/98 (mmHg) O2 Sat by Pulse 96 96 96 Oximetry 05/06/17 05/06/17 05/06/17 10:30 10:36 10:44 Temperature Pulse Rate 88 Respiratory 14 16 16 Rate Blood Pressure 143/83 (mmHg) O2 Sat by Pulse 98 Oximetry 05/06/17 05/06/17 05/06/17 10:45 10:59 11:00 Temperature Pulse Rate 91 94 Respiratory 16 20 16 Rate Blood Pressure 152/97 161/98 (mmHg) O2 Sat by Pulse 99 99 Oximetry 05/06/17 05/06/17 05/06/17 11:04 11:09 11:14 Temperature Pulse Rate Respiratory 16 20 20 Rate Blood Pressure (mmHg) O2 Sat by Pulse Oximetry 05/06/17 05/06/17 05/06/17 11:15 11:23 11:30 Temperature Pulse Rate 97 96 Respiratory 18 20 20 Rate Blood Pressure 166/96 159/100 (mmHg) O2 Sat by Pulse 99 100 Oximetry 05/06/17 05/06/17 05/06/17 11:46 11:54 12:53 Temperature 97.7 F Pulse Rate 94 92 Respiratory 14 16 16 Rate Blood Pressure 172/99 140/74 (mmHg) O2 Sat by Pulse 98 99 Oximetry 05/06/17 05/06/17 05/06/17 13:19 13:25 13:49 Temperature Pulse Rate Respiratory 16 16 16 Rate Blood Pressure (mmHg) O2 Sat by Pulse Oximetry Oxygen Devices in Use Now: None Appearance: Female patient, lying in bed, appears uncomforable, tearful Eyes: No Scleral Icterus, PERRLA Ears/Nose/Mouth/Throat: Clear Oropharnyx, Mucous Membranes Moist Neck: NL Appearance and Movements; NL JVP Respiratory: Symmetrical Chest Expansion and Respiratory Effort, Clear to Auscultation Cardiovascular: NL Sounds; No Murmurs; No JVD, RRR Abdominal: NL Sounds; No Tenderness; No Distention Extremities: No Clubbing, Cyanosis, - - distally nvi, positive pedal pulses Neurological: Alert and Oriented x 3, NL Muscle Strength and Tone Lines/Tubes/Other Access: Clean, Dry and Intact Gamino, Clean, Dry and Intact Peripheral IV Nutrition: Taking PO's Assessment/Plan - Billing Ms. Mora is a 61 yo female with a PMH of seizure disorder, hyperthyroidism, HTN, hypercholesterolemia, BrCa, depression, anxiety, and osteoarthritis who was admitted on 05/16/17 for an elective left total knee replacement. Plan By Medical Problem: 1. S/p left total knee replacement - POD #0, management per ortho. Plan for pain management, PT/OT consults, close monitoring of HH. Patient likely has opioid tolerance secondary to chronic use; continue to titrate meds slowly for pain control while monitoring for lethargy/sedation. Give one time dose of diazepam for suspected muscle spasms and continue to monitor. 2. Seizure disorder - Last seizure was less than a month ago in the [facility] ortho office. Continue home zonisamide, lamotrigine, gabapentin. Patient should not be given tramadol, which can lower the seizure threshold. Follows with Dr. Hale at [facility]. 3. Hyperthyroidism - Last TSH 0.07, free T4 9.87. Continue home methimazole. Continue outpatient f/u with Dr. Donohue. 4. HTN - Normotensive. Not on any antihypertensives. 5. Hypercholesterolemia - diet controlled. 6. Depression with anxiety - Suspect there could be other underlying psych issues; patient is very emotionally labile but reasonable. Continue home vilazodone, lurasidone, lamotrigine. Home clonazepam currently on hold but could be resumed as needed. Continue supportive care. 7. History of breast cancer - Continue exemestane. Continue outpatient follow- up. 8. Osteoarthritis - Hold home naproxen; other pain modalities available. VTE PPX: Per ortho - warfarin and Lovenox, SCDs Diet: Regular diet when able to tolerate PO Code Status: Full code Admission Status and Rationale: Inpatient admission for orthopedic surgery. Disposition per ortho. 50 minutes was spent on this initial consultation, more of half was spent in [id number] time.
[2017-05-06] MEDS ORDERED: Diazepam INJ (NF) 5 MG/ML 10 ML VIAL (50 MG TOTAL) IV ONE ×2 (16:07→17:00)
[2017-05-06] MEDS ORDERED: Warfarin TAB(*) 6 MG PO ONE (17:00)
[2017-05-06] MEDS: PTO: Vilazodone (NF) 40 MG TAB PO SCH (19:35)
[2017-05-06] MEDS: ZONISAMIDE 100 MG PO SCH (19:35)
[2017-05-06] MEDS: oxyCODONE TAB* 5 MG TAB PO PRN (19:56)
[2017-05-06] MEDS: LAMOTRIGINE 100 MG PO SCH (20:12)
[2017-05-06] MEDS: Docusate CAP* 100 MG PO SCH (20:13)
[2017-05-06] MEDS: Magnesium Hydroxide LIQ* 30 ML UDC PO SCH (20:16)
[2017-05-07] MEDS: oxyCODONE TAB* 5 MG TAB PO PRN ×2 (01:41→06:27)
[2017-05-07] MEDS: oxyCODONE/Acetamin 5/325 MG* TAB PO PRN ×4 (03:59→21:46)
--- NOTE | 2017-05-07 05:17 | OP ---
OPERATIVE REPORT: DATE OF OPERATION: 05/06/17 DATE OF : 57 SURGEON: Tamara Ferraro MD. PLATEN GRINDER: CEDRIC Damian. Mr. Haq did help throughout the procedure with preparation of the leg, wound retraction, manipulat ion of the knee, and wound closure. ANESTHESIOLOGIST: Dr. Segal. ANESTHESIA: General. PRE-OP DIAGNOSIS: Severe endstage degenerative osteoarthritis of the left knee joint. POST-OP DIAGNOSIS: Severe endstage degenerative osteoarthritis of the left knee joint. OPERATIVE PROCEDURE: Left total knee arthroplasty. BRIEF HISTORY/INDICATIONS: Ms. Mora is a 61-year-old female with years of increasingly severe left knee pain. She failed conservative treatment with anti- inflammatories, pain medications, intra-art icular injections, and physical therapy. Radiograph showed [id number] arthritis. She elected to un dergo left total knee arthroplasty due to continued pain and decreased quality of life. Informed con sent was obtained from the patient. She understood the risks of surgery, included but were not limit ed to, bleeding, infection, damage to nearby structures, continued pain, need for further surgery, in traoperative fracture, nerve palsy, hardware failure or loosening, knee stiffness, loss of motion, st roke, heart attack, blood clot, and . She wished to proceed. TOURNIQUET TIME: 41 minutes. COMPLICATIONS: None. SPECIMEN: Bone and cartilage from the left knee joint sent to Pathology. ESTIMATED BLOOD LOSS: 350 cc. HARDWARE USED: [employer] cemented total knee hardware. Two packages of Simplex bone cement w ere used. For the femur, a size 5 narrow left posterior stabilized Oxinium Legion femoral component. For the tibia a size 4, left tibial baseplate, Meli II. For the insert, a 13-mm posterior stabi lized articular insert, size 3-4 and for the patella, a 32-mm 3-peg all poly patella. INTRAOPERATIVE FINDINGS: Intraoperatively, the patient was noted to have severe endstage arthritis w ith tricompartmental full thickness loss of cartilage. She was noted to have osteopenia. DESCRIPTION OF PROCEDURE: Ms. Mora was identified in the preanesthesia unit. Her left lower extrem ity was marked as the correct operative side. Informed consent was signed and placed in the chart. The patient was taken to the operating room and placed under general anesthesia. A Gamino catheter wa s placed. Tourniquet was placed on the left thigh. Left lower extremity was prepped and draped in t he usual sterile fashion. Preop time-out was made to correctly identify the patient's side and site. Appropriate perioperative antibiotics were given within 1 hour of incision. Tourniquet was inflated. A 12-cm midline incision was made with a #10 blade and carried down to the extensor mechanism. A new 10 blade was used to make a standard medial parapatellar arthrotomy. The patella was subluxed laterally. Electrocautery was used to subperiosteally elevate soft tissue off th e superomedial tibia to the midsagittal plane. The knee was flexed up. The anterior horn of the lat eral meniscus and ACL were sharply released. A drill was used to enter the distal femur. Intramedul joselin distal femoral cutting guide was pinned on the distal femur. Oscillating saw was used to make t he distal femoral cut. Next, the external rotation guide was pinned on the distal femur and the dist al femur was sized to size 5. Size 5 multi-cutting jig was pinned on the distal femur. Oscillating s aw was used to make the appropriate 4 chamfer cuts. The PCL was completely released. The tibia was subluxed anteriorly. Extramedullary tibial cutting gu nathanael was pinned on the proximal tibia. The oscillating saw was used to make the proximal tibial cut p erpendicular to the mechanical axis of the tibia. The bone was carefully removed. The knee was brou ght into full extension. The spacer block had excellent fit with medial and lateral ligaments well b alanced. Flexion and extension gaps were well balanced. The knee was flexed up. Lamina vat cleaner was placed both medially and laterally. Any remaining meniscus was carefully removed using electrocauter y. Posterior osteophytes were removed with a curved osteotome. A size 3 tibial tray and drop sunshine we re placed to once again confirm a satisfactory tibial cut. This was confirmed. A trial left size 5 narrow femur was impacted on to the distal femur without difficulty. This had excellent fit. The wesly x for the posterior stabilized implant was prepared using a reamer and box-cut osteotome. A size 4 t ibial tray with a 11-mm insert trial was placed and the knee was taken through range of motion. The knee had full extension to 130 degrees of flexion with good patellofemoral tracking. The patella was everted and 9 mm of patellar bone and cartilage was carefully removed using an oscillating saw. The patella was sized to a size 32. Three peg holes were drilled through the size 32 guide. A 32 trial patella was placed and the knee was taken through range of motion. There was good patellofemoral tr acking. All trials were carefully removed. The tibia was subluxed anteriorly and sized to a size 4. Proximal tibia was prepared using a size 4 keel punch. All bony cut surfaces were copiously irriga dusty with sterile saline and dried. Final implants were cemented into place starting with the tibia, followed by the femur, and lastly the patella. A 13-mm articular insert trial was placed and the kne e was brought out into full extension. The tourniquet was turned down at 41 minutes. The knee was copiously irrigated with sterile saline. Electrocautery was used to obtain meticulous hemostasis. Once the cement had fully cured, the insert trial was removed. Any cement around the capsule or hardware was removed. Final insert chosen was a size 3-4 Meli II posterior stabilized articular insert 13 mm. This was locked into position on the tibial tray without difficulty. Stability of the insert was checked and rechecked and noted to b e stable. The knee was once again copiously irrigated with sterile saline. The extensor mechanism was closed o nina a medium Hemovac drain using interrupted #1 Vicryl. The rest of the incision was closed in a lay ered fashion using 0 and 2-0 Vicryl. Skin was closed using running 3-0 nylon suture. Sterile Xerofo rm, 4x4s, and Webril were used to cover the incision. Denny wrap and cold packs were placed over this. The patient's anesthesia was reversed without difficulty. She was taken to the PACU in stable condit ion. Intended weightbearing will be weightbearing as tolerated. Intended DVT prophylaxis will be Co umadin with a Lovenox bridge. [id number]/[facility] #: [id number]
[2017-05-07 05:49] LABS: Hematocrit 30 % (35-47); Hemoglobin 10.4 g/dl (12.0-16.0); Mean Platelet Volume 7 um3 (7.4-10.4); Platelet Count 393 10^3/ul (150-450)
[2017-05-07 05:53] LABS: INR 1.08 (0.77-1.02)
--- NOTE | 2017-05-07 07:34 | PN ---
Progress Note - Progress Note Date of Service: 05/07/17 SOAP: Subjective: Pt. is alert, feeling improved this AM - less pain. Objective: LLE - drain removed, tip intact. distally +df/pf, full sens lt, 2+ dp pulse. Vital Signs: Temp Pulse Resp BP Pulse Ox 99.5 F 81 18 127/76 94 05/07/17 03:51 05/07/17 03:51 05/07/17 06:27 05/07/17 03:51 05/07/17 03:51 Laboratory Results - last 24 hr 05/07/17 05/07/17 05/07/17 05:32 05:32 05:32 Hgb 10.4 L Hct 30 L Plt Count 393 MPV 7 L INR (Anticoag Therapy) 1.08 H Sodium 136 Potassium 3.7 Chloride 106 Carbon Dioxide 24 Anion Gap 6 BUN 12 Creatinine 0.65 Est GFR ( Amer) 119.6 Est GFR (Non-Af Amer) 93.0 BUN/Creatinine Ratio 18.5 Glucose 120 H Calcium 8.7 Assessment: 61 yo F pod 1 s/p LTKA Plan: wbat lle pt/ot lovenox today - 8 mg coumadin appreciate hospitalist consult
[2017-05-07] MEDS: Docusate CAP* 100 MG PO SCH ×2 (08:49→21:46)
[2017-05-07] MEDS: Gabapentin CAP(*) 300 MG PO SCH ×3 (08:49→21:46)
[2017-05-07] MEDS: Magnesium Hydroxide LIQ* 30 ML UDC PO SCH ×2 (08:49→21:50)
[2017-05-07] MEDS: Lurasidone(*) 40 MG TAB PO SCH (08:50)
[2017-05-07] MEDS: EXEMESTANE 25 MG PO SCH (08:50)
[2017-05-07] MEDS: METHIMAZOLE 5 MG PO SCH (08:51)
[2017-05-07] MEDS: LAMOTRIGINE 100 MG PO SCH ×2 (08:53→21:46)
--- NOTE | 2017-05-07 09:43 | PN ---
Subjective Date of Service: 05/07/17 Interval History: Patient states she is in significant 8.5/10 constant throbbing pain in her left knee. Patient states that it gets slightly better with medication but that she is concerned about needing so much pain medication and is wary or using too much for too long. Patient is anxious, particularly around the dosing of her Zonergren. Patient's most recent seizure was a month ago after she started taking percocet, but states that she has been taking it since without seizure and that they are generally well controlled since her 30s. Patient states she has vagus nerve stimulator electrodes, but has no stimulator because it was removed when she had a breast surgery. Patient denies CP, SOB, N/V, abdominal pain, dizziness, VEGA, changes in vision, F/C. Patient has not had a bowel movement yet and has no passed gas but does not feel constipated. Family History: Findings - Mother: Hx Breast cancer, Father: Hx Heart Disease Social History: Findings - , lives with , who is HCP. Smokes less than half a PPD Past Medical History: Findings - Seizure disorder, hyperthyroidism with multinodular goiter, history of BrCa, hypercholesterolemia, HTN, depression, anxiety, osteoarthritis Objective Active Medications: Acetaminophen (Tylenol Tab*) 650 mg PO Q4H PRN PRN Reason: PAIN OR TEMPERATURE Bisacodyl (Dulcolax Supp*) 10 mg [place] DAILY PRN PRN Reason: constipation Cyclobenzaprine HCl (Flexeril Tab*) 10 mg PO TID PRN PRN Reason: SPASMS Dimenhydrinate (Dramamine Iv*) 25 mg IV PUSH ONCE PRN PRN Reason: NAUSEA/VOMITING Diphenhydramine HCl (Benadryl Iv*) 12.5 mg IV Q6H PRN PRN Reason: PRURITIS Docusate Sodium (Colace Cap*) 100 mg PO BID [facility] Last Admin: 05/07/17 08:49 Dose: 100 mg Enoxaparin Sodium (Lovenox(*)) 30 mg SUBCUT Q24H [facility] Exemestane (Aromasin(Nf)) 25 mg PO QAM [facility] Last Admin: 05/07/17 08:50 Dose: 25 mg Gabapentin (Neurontin Cap(*)) 300 mg PO TID [facility] Last Admin: 05/07/17 08:49 Dose: 300 mg Lactated Ringer's (Lactated Ringers 1000 Ml Bag*) 1,000 mls @ 100 mls/hr IV PER RATE [facility] Last Admin: 05/07/17 00:44 Dose: 100 mls/hr Lactulose (Lactulose*) 30 ml PO Q6H PRN PRN Reason: constipation Lamotrigine (Lamictal Tab(*)) 200 mg PO BID [facility] Last Admin: 05/07/17 08:53 Dose: 200 mg Lurasidone HCl (Latuda) 40 mg PO QAM [facility] Last Admin: 05/07/17 08:50 Dose: 40 mg Magnesium Hydroxide (Milk Of Magnesia Liq*) 30 ml PO BID [facility] Last Admin: 05/07/17 08:49 Dose: 30 ml Magnesium Hydroxide (Milk Of Magnesia Liq*) 30 ml PO Q6H PRN PRN Reason: constipation Methimazole ([facility] Tab*) [facility] Last Admin: 05/07/17 08:51 Dose: 7.5 mg Morphine Sulfate (Morphine Inj (Syringe)*) 2 mg IV Q2H PRN PRN Reason: PAIN Last Admin: 05/06/17 23:50 Dose: 2 mg Ondansetron HCl (Zofran Inj*) 4 mg IV Q6H PRN PRN Reason: nausea Ondansetron HCl (Zofran Tab*) 4 mg PO Q6H PRN PRN Reason: NAUSEA Oxycodone HCl (Roxycodone Tab*) 10 mg PO Q4H PRN PRN Reason: SEVERE PAIN Last Admin: 05/07/17 06:27 Dose: 10 mg Oxycodone/Acetaminophen (Percocet 5/325 Tab*) 2 tab PO Q4H PRN PRN Reason: PAIN Last Admin: 05/07/17 09:09 Dose: 2 tab Oxycodone/Acetaminophen (Percocet 5/325 Tab*) 1 tab PO Q4H PRN PRN Reason: PAIN Pharmacy Profile Note (Coumadin Daily Reminder*) 1 note FOLLOW UP 1700 [facility] Last Admin: 05/06/17 17:00 Dose: 1 note Polyethylene Glycol/Electrolytes (Miralax*) 17 gm PO DAILY PRN PRN Reason: Constipation Vilazodone HCl (Viibryd (Nf)) 40 mg PO QPM [facility] Last Admin: 05/06/17 19:35 Dose: 40 mg Warfarin Sodium (Coumadin Tab(*)) 8 mg PO ONCE@1700 ONE PRN Reason: Protocol Stop: 05/07/17 17:01 Zonisamide (Zonegran(Nf)) 400 mg PO QPM [facility] Last Admin: 05/06/17 19:35 Dose: 400 mg Vital Signs - 8 hr 05/07/17 05/07/17 05/07/17 01:41 03:51 03:59 Temperature 99.5 F Pulse Rate 81 Respiratory 18 16 16 Rate Blood Pressure 127/76 (mmHg) O2 Sat by Pulse 94 Oximetry 05/07/17 05/07/17 05/07/17 06:27 08:47 08:49 Temperature Pulse Rate Respiratory 18 18 18 Rate Blood Pressure (mmHg) O2 Sat by Pulse Oximetry 05/07/17 09:09 Temperature Pulse Rate Respiratory 18 Rate Blood Pressure (mmHg) O2 Sat by Pulse Oximetry Oxygen Devices in Use Now: None Appearance: Patient is a 61yo female who appears stated age and is sitting in the chair appearing moderately anxious and tearful. Eyes: No Scleral Icterus, PERRLA Ears/Nose/Mouth/Throat: NL Teeth, Lips, Gums, Clear Oropharnyx, Mucous Membranes Moist Neck: NL Appearance and Movements; NL JVP, Trachea Midline Respiratory: Symmetrical Chest Expansion and Respiratory Effort, Clear to Auscultation, - - ISB 1500 Cardiovascular: NL Sounds; No Murmurs; No JVD, RRR, No Edema Abdominal: NL Sounds; No Tenderness; No Distention, No Hepatosplenomegaly Lymphatic: No Cervical Adenopathy Extremities: No Edema, No Clubbing, Cyanosis, - - Pulses 2+ in radial, PT, DP, trace edema in LLE, greater than right, no tenderness to palpation over the calf. No numbness or tingling in LLE. Skin: No Nodules or Sclerosis, - - Left Knee covered by bulky dressing. Neurological: Alert and Oriented x 3, NL Sensation Result Diagrams: 05/07/17 05:32 05/07/17 05:32 Assess/Plan/Problems-Billing Ms. Mora is a 61 yo female with a PMH of seizure disorder, hyperthyroidism, HTN, hypercholesterolemia, BrCa, depression, anxiety, and osteoarthritis who was admitted on 05/16/17 for an elective left total knee replacement. - Patient Problems (1) Status post total left knee replacement Current Visit: Yes Status: Acute Code(s): Z96.652 - PRESENCE OF LEFT ARTIFICIAL KNEE JOINT SNOMED Code(s): 0701462198700 Comment: POD #1, H/H good, no signs of Blood Loss Anemia. No BM or flatus but no abdominal pain. PT/OT, Pain control per ortho. (2) Seizure disorder Current Visit: Yes Status: Acute Code(s): G40.909 - EPILEPSY, UNSP, NOT INTRACTABLE, WITHOUT STATUS EPILEPTICUS SNOMED Code(s): 808102022 Comment: Well controlled generally, seizure 1 month age. Previous temporal lobectomy. Previous Vagal Nerve Stimulator not functioning. Continue Lamictal, Zonergran and gabapentin. Avoid drugs that lower the seizure threshold. (3) Anxiety Current Visit: Yes Status: Acute Code(s): F41.9 - ANXIETY DISORDER, UNSPECIFIED SNOMED Code(s): 26573254 Comment: Patient very anxious. Continue Vilazadone and Latuda. Possibly related to previous brain surgery. (4) Hyperthyroidism Current Visit: Yes Status: Acute Code(s): E05.90 - THYROTOXICOSIS, UNSP WITHOUT THYROTOXIC CRISIS OR STORM SNOMED Code(s): 23502675 Comment: Previously very high T4 and Low TSH. Known Multinodular Goiter. Continue methimazole and follow up with Endocrinology. Will repeat as most recent check was 3 months ago. No signs of thyrotoxicosis except possibly anxiety. (5) HTN (hypertension) Current Visit: Yes Status: Acute Code(s): I10 - ESSENTIAL (PRIMARY) HYPERTENSION SNOMED Code(s): 01684700 Comment: Normotensive now, previously hypertensive. No medications. (6) HLD (hyperlipidemia) Current Visit: Yes Status: Acute Code(s): E78.5 - HYPERLIPIDEMIA, UNSPECIFIED SNOMED Code(s): 44351198 Comment: Diet controlled, no available lipid panel. Follow up outpatient. (7) History of breast cancer Current Visit: Yes Status: Acute Code(s): Z85.3 - PERSONAL HISTORY OF MALIGNANT NEOPLASM OF BREAST SNOMED Code(s): 327916399 Comment: Continue Exemestane. (8) DVT prophylaxis Current Visit: Yes Status: Acute Code(s): AQN3925 - SNOMED Code(s): 956450890 Comment: Lovenox to Warfarin. (9) Full code status Current Visit: Yes Status: Acute Code(s): Z78.9 - OTHER SPECIFIED HEALTH STATUS SNOMED Code(s): 862415062 Status and Disposition: Admitted inpatient. Disposition per ortho.
[2017-05-07] MEDS: Morphine INJ* 2 MG/ML 1 ML SYRINGE (TWO MG - NEW SYRINGE VERSION) IV PRN ×4 (10:16→19:15)
[2017-05-07] MEDS ORDERED: Enoxaparin(*) 30 MG/0.3 ML SYR SUBCUT SCH (12:00)
[2017-05-07] MEDS ORDERED: Warfarin TAB(*) 4 MG PO ONE (17:00)
[2017-05-07] MEDS: PTO: Vilazodone (NF) 40 MG TAB PO SCH (17:29)
[2017-05-07] MEDS: ZONISAMIDE 100 MG PO SCH (17:29)
[2017-05-08] MEDS: Morphine INJ* 2 MG/ML 1 ML SYRINGE (TWO MG - NEW SYRINGE VERSION) IV PRN ×4 (01:09→15:03)
[2017-05-08] MEDS: oxyCODONE/Acetamin 5/325 MG* TAB PO PRN ×4 (03:39→22:31)
[2017-05-08 05:54] LABS: Hematocrit 27 % (35-47); Hemoglobin 9.4 g/dl (12.0-16.0); Mean Platelet Volume 7 um3 (7.4-10.4); Platelet Count 334 10^3/ul (150-450)
[2017-05-08 05:59] LABS: INR 2.69 (0.77-1.02)
--- NOTE | 2017-05-08 08:08 | PN ---
Progress Note - Progress Note Date of Service: 05/08/17 SOAP: Subjective: []Patient seen at bedside. She reports her pain is currently well controlled but she is still not sleeping, which causes her worry about seizures. Denies CP , SOB, leg numbness, chills, nausea. Objective: [] Vital Signs Temp 100.2 F 05/08/17 15:49 Pulse 91 05/08/17 15:49 Resp 17 05/08/17 15:49 BP 122/63 05/08/17 15:49 Pulse Ox 97 05/08/17 15:49 Intake & Output 05/07/17 05/08/17 05/08/17 18:59 06:59 18:59 Intake Total 2007 660 1025 Output Total 1100 1125 250 Balance 907 -465 775 Intake: IV Fluids 1127 LR 1127 IVPB 280 LR 280 Oral 037 355 7115 Output: Urine 1100 1125 250 Other: # Bowel Movements 0 0 Laboratory Last Values Hgb 9.4 g/dl (12.0-16.0) L 05/08/17 05:31 Hct 27 % (35-47) L 05/08/17 05:31 Plt Count 334 10^3/ul (150-450) 05/08/17 05:31 MPV 7 um3 (7.4-10.4) L 05/08/17 05:31 INR (Anticoag Therapy) 2.69 (0.77-1.02) H 05/08/17 05:31 Sodium 136 mmol/L (133-145) 05/08/17 05:31 Potassium 3.6 mmol/L (3.5-5.0) 05/08/17 05:31 Chloride 107 mmol/L (101-111) 05/08/17 05:31 Carbon Dioxide 24 mmol/L (22-32) 05/08/17 05:31 Anion Gap 5 mmol/L (2-11) 05/08/17 05:31 BUN 9 mg/dL (6-24) 05/08/17 05:31 Creatinine 0.65 mg/dL (0.51-0.95) 05/08/17 05:31 Est GFR ( Amer) 119.6 (>60) 05/08/17 05:31 Est GFR (Non-Af Amer) 93.0 (>60) 05/08/17 05:31 BUN/Creatinine Ratio 13.8 (8-20) 05/08/17 05:31 Glucose 120 mg/dL (70-100) H 05/08/17 05:31 Calcium 8.8 mg/dL (8.6-10.3) 05/08/17 05:31 Magnesium 1.9 mg/dL (1.9-2.7) 05/08/17 05:31 TSH 0.13 mcIU/mL (0.34-5.60) L 05/07/17 05:32 Thyroxine (T4) 6.80 mcg/mL (6.09-12.23) 05/07/17 05:32 General: Well appearing, NAD LLE: dressing changed. Incision CDI without erythema or drainage. DF/PF intact. 2+ DP BL LE: calves supple and nontender without palpable cords, erythema or edema Assessment: []61 yo F pod 2 s/p LTKA Plan: []WBAT PT/OT Hold coumadin today. DC lovenox low grade temp to be monitored DC home when pain well enough controlled - goal is 05/09 though patient is hesitant to DC before 05/10
[2017-05-08] MEDS: Gabapentin CAP(*) 300 MG PO SCH ×3 (09:50→22:30)
[2017-05-08] MEDS: Lurasidone(*) 40 MG TAB PO SCH (09:50)
[2017-05-08] MEDS: Magnesium Hydroxide LIQ* 30 ML UDC PO SCH ×2 (09:50→22:31)
[2017-05-08] MEDS: Docusate CAP* 100 MG PO SCH ×2 (09:50→22:30)
[2017-05-08] MEDS: LAMOTRIGINE 100 MG PO SCH ×2 (09:52→22:30)
[2017-05-08] MEDS: EXEMESTANE 25 MG PO SCH (09:52)
[2017-05-08] MEDS: METHIMAZOLE 5 MG PO SCH (09:53)
[2017-05-08] MEDS: oxyCODONE TAB* 5 MG TAB PO PRN (11:43)
--- NOTE | 2017-05-08 12:43 | PN ---
Subjective Date of Service: 05/08/17 Interval History: Patient states she is in continued pain from yesterday at 8.5/10. Patient states that pain medication helps, but that she has not had any change in the character or intensity of her pain from yesterday. Patient states that the pain medication helps her sleep which is important to her because sleep deprivation is an important trigger for her seizures. Patient denies CP, SOB, N/V, abdominal pain, diarrhea, constipation, F/C, dysuria, or other pain. Family History: Findings - Mother: Hx Breast cancer, Father: Hx Heart Disease Social History: Findings - , lives with , who is HCP. Smokes less than half a PPD Past Medical History: Findings - Seizure disorder, hyperthyroidism with multinodular goiter, history of BrCa, hypercholesterolemia, HTN, depression, anxiety, osteoarthritis Objective Active Medications: Acetaminophen (Tylenol Tab*) 650 mg PO Q4H PRN PRN Reason: PAIN OR TEMPERATURE Bisacodyl (Dulcolax Supp*) 10 mg [place] DAILY PRN PRN Reason: constipation Cyclobenzaprine HCl (Flexeril Tab*) 10 mg PO TID PRN PRN Reason: SPASMS Dimenhydrinate (Dramamine Iv*) 25 mg IV PUSH ONCE PRN PRN Reason: NAUSEA/VOMITING Diphenhydramine HCl (Benadryl Iv*) 12.5 mg IV Q6H PRN PRN Reason: PRURITIS Docusate Sodium (Colace Cap*) 100 mg PO BID [facility] Last Admin: 05/08/17 09:50 Dose: 100 mg Exemestane (Aromasin(Nf)) 25 mg PO QAM [facility] Last Admin: 05/08/17 09:52 Dose: 25 mg Gabapentin (Neurontin Cap(*)) 300 mg PO TID [facility] Last Admin: 05/08/17 09:50 Dose: 300 mg Lactated Ringer's (Lactated Ringers 1000 Ml Bag*) 1,000 mls @ 100 mls/hr IV PER RATE [facility] Last Admin: 05/07/17 10:48 Dose: 100 mls/hr Lactulose (Lactulose*) 30 ml PO Q6H PRN PRN Reason: constipation Lamotrigine (Lamictal Tab(*)) 200 mg PO BID [facility] Last Admin: 05/08/17 09:52 Dose: 200 mg Lurasidone HCl (Latuda) 40 mg PO QAM [facility] Last Admin: 05/08/17 09:50 Dose: 40 mg Magnesium Hydroxide (Milk Of Magnesia Liq*) 30 ml PO BID [facility] Last Admin: 05/08/17 09:50 Dose: 30 ml Magnesium Hydroxide (Milk Of Magnesia Liq*) 30 ml PO Q6H PRN PRN Reason: constipation Methimazole (Tapazole Tab*) [facility] [place] Last Admin: 05/08/17 09:53 Dose: 7.5 mg Morphine Sulfate (Morphine Inj (Syringe)*) 2 mg IV Q2H PRN PRN Reason: PAIN Last Admin: 05/08/17 10:03 Dose: 2 mg Ondansetron HCl (Zofran Inj*) 4 mg IV Q6H PRN PRN Reason: nausea Ondansetron HCl (Zofran Tab*) 4 mg PO Q6H PRN PRN Reason: NAUSEA Oxycodone HCl (Roxycodone Tab*) 10 mg PO Q4H PRN PRN Reason: SEVERE PAIN Last Admin: 05/08/17 11:43 Dose: 10 mg Oxycodone/Acetaminophen (Percocet 5/325 Tab*) 2 tab PO Q4H PRN PRN Reason: PAIN Last Admin: 05/08/17 08:04 Dose: 2 tab Oxycodone/Acetaminophen (Percocet 5/325 Tab*) 1 tab PO Q4H PRN PRN Reason: PAIN Pharmacy Profile Note (Coumadin Daily Reminder*) 1 note FOLLOW UP 1700 [facility] Last Admin: 05/07/17 16:39 Dose: 1 note Polyethylene Glycol/Electrolytes (Miralax*) 17 gm PO DAILY PRN PRN Reason: Constipation Vilazodone HCl (Viibryd (Nf)) 40 mg PO QPM [facility] Last Admin: 05/07/17 17:29 Dose: 40 mg Zonisamide (Zonegran(Nf)) 400 mg PO QPM [facility] Last Admin: 05/07/17 17:29 Dose: 400 mg Vital Signs - 8 hr 05/08/17 05/08/17 05/08/17 05:41 06:31 07:39 Temperature 98.6 F Pulse Rate 88 Respiratory 16 16 16 Rate Blood Pressure 92/54 (mmHg) O2 Sat by Pulse 93 Oximetry 01/03/1505/08/17 05/08/17 07:51 08:00 08:04 Temperature Pulse Rate Respiratory 18 18 20 Rate Blood Pressure (mmHg) O2 Sat by Pulse Oximetry 05/08/17 05/08/17 05/08/17 09:50 09:56 10:03 Temperature Pulse Rate Respiratory 18 18 18 Rate Blood Pressure (mmHg) O2 Sat by Pulse Oximetry 05/08/17 05/08/17 05/08/17 11:43 12:00 12:28 Temperature 99.4 F Pulse Rate 84 Respiratory 18 16 18 Rate Blood Pressure 94/53 (mmHg) O2 Sat by Pulse 95 Oximetry Oxygen Devices in Use Now: None Appearance: Patient is a 61yo female who appears stated age and is sitting in the bed in [facility]. Eyes: No Scleral Icterus, PERRLA Ears/Nose/Mouth/Throat: NL Teeth, Lips, Gums, Clear Oropharnyx, Mucous Membranes Moist Neck: NL Appearance and Movements; NL JVP, Trachea Midline Respiratory: Symmetrical Chest Expansion and Respiratory Effort, Clear to Auscultation Cardiovascular: NL Sounds; No Murmurs; No JVD, RRR, - - 1+ edema in B/L LE. Abdominal: NL Sounds; No Tenderness; No Distention, No Hepatosplenomegaly Lymphatic: No Cervical Adenopathy Extremities: No Clubbing, Cyanosis Skin: No Nodules or Sclerosis, - - CDI incision on Left knee covered by a bulky dressing. Neurological: Alert and Oriented x 3, NL Sensation, NL Muscle Strength and Tone , - - CN II-XII intact Result Diagrams: 05/08/17 05:31 05/08/17 05:31 Assess/Plan/Problems-Billing Ms. Mora is a 61 yo female with a PMH of seizure disorder, hyperthyroidism, HTN, hypercholesterolemia, BrCa, depression, anxiety, and osteoarthritis who was admitted on 05/16/17 for an elective left total knee replacement. - Patient Problems (1) Status post total left knee replacement Current Visit: Yes Status: Acute Code(s): Z96.652 - PRESENCE OF LEFT ARTIFICIAL KNEE JOINT SNOMED Code(s): 6461282152014 Comment: POD #2, H/H good, no signs of Blood Loss Anemia. Flatus but no BM or abdominal pain. PT/OT, Pain control per ortho. IV pain medication needed for sleep at this time which is important for seizure prevention. (2) Seizure disorder Current Visit: Yes Status: Acute Code(s): G40.909 - EPILEPSY, UNSP, NOT INTRACTABLE, WITHOUT STATUS EPILEPTICUS SNOMED Code(s): 226349855 Comment: Well controlled generally, seizure 1 month age. Previous temporal lobectomy. Previous Vagal Nerve Stimulator not functioning. Continue Lamictal, Zonergran and gabapentin. Avoid drugs that lower the seizure threshold and noxious stimuli such as hyperventilation and sleep deprivation. (3) Anxiety Current Visit: Yes Status: Acute Code(s): F41.9 - ANXIETY DISORDER, UNSPECIFIED SNOMED Code(s): 46550047 Comment: Patient very anxious. Continue Vilazadone and Latuda. Possibly related to previous brain surgery. (4) Hyperthyroidism Current Visit: Yes Status: Acute Code(s): E05.90 - THYROTOXICOSIS, UNSP WITHOUT THYROTOXIC CRISIS OR STORM SNOMED Code(s): 83800594 Comment: Previously very high T4 and Low TSH. Known Multinodular Goiter. Continue methimazole and follow up with Endocrinology. TSH at .13, T4 high end of normal at 6.8. No signs of thyrotoxicosis except possibly anxiety. (5) HTN (hypertension) Current Visit: Yes Status: Acute Code(s): I10 - ESSENTIAL (PRIMARY) HYPERTENSION SNOMED Code(s): 82590778 Comment: Borderline hypotensive. Asympotomatic, will monitor. No medications. (6) HLD (hyperlipidemia) Current Visit: Yes Status: Acute Code(s): E78.5 - HYPERLIPIDEMIA, UNSPECIFIED SNOMED Code(s): 57347034 Comment: Diet controlled, no available lipid panel. Follow up outpatient. (7) History of breast cancer Current Visit: Yes Status: Acute Code(s): Z85.3 - PERSONAL HISTORY OF MALIGNANT NEOPLASM OF BREAST SNOMED Code(s): 966627289 Comment: Continue Exemestane. (8) DVT prophylaxis Current Visit: Yes Status: Acute Code(s): XLB6726 - SNOMED Code(s): 500351603 Comment: Lovenox to Warfarin. (9) Full code status Current Visit: Yes Status: Acute Code(s): Z78.9 - OTHER SPECIFIED HEALTH STATUS SNOMED Code(s): 041019178 Status and Disposition: Admitted inpatient. Disposition per ortho.
[2017-05-08] MEDS: PTO: Vilazodone (NF) 40 MG TAB PO SCH (18:08)
[2017-05-08] MEDS: ZONISAMIDE 100 MG PO SCH (18:08)
[2017-05-09] MEDS: oxyCODONE/Acetamin 5/325 MG* TAB PO PRN ×3 (03:17→13:01)
[2017-05-09 07:28] LABS: Hematocrit 27 % (35-47); Hemoglobin 9.3 g/dl (12.0-16.0); Mean Platelet Volume 7 um3 (7.4-10.4); Platelet Count 339 10^3/ul (150-450)
[2017-05-09 07:34] LABS: INR 2.82 (0.77-1.02)
[2017-05-09] MEDS ORDERED: Scopolamine PATCH Remove* 1 NOTE MISC PATCH OFF ONE (08:38)
[2017-05-09] MEDS: LAMOTRIGINE 100 MG PO SCH (08:41)
[2017-05-09] MEDS: Docusate CAP* 100 MG PO SCH (08:41)
[2017-05-09] MEDS: Lurasidone(*) 40 MG TAB PO SCH (08:42)
[2017-05-09] MEDS: Gabapentin CAP(*) 300 MG PO SCH (08:42)
[2017-05-09] MEDS: EXEMESTANE 25 MG PO SCH (08:43)
[2017-05-09] MEDS: METHIMAZOLE 5 MG PO SCH (08:43)
[2017-05-09] MEDS: Magnesium Hydroxide LIQ* 30 ML UDC PO SCH (08:47)
[2017-05-09] MEDS: oxyCODONE TAB* 5 MG TAB PO PRN (10:24)
--- NOTE | 2017-05-09 14:24 | PN ---
Progress Note - Progress Note Date of Service: 05/09/17 SOAP: Subjective: 61 y/o female s/p L TKA by DR. Ferraro 05/06/2017. Patient overall feeling well, anxious about doing PT well enough to have good outcome. VSS, afebrile. Objective: General- Well appearing, NAD, AO MSK- dressing removed from left leg, incision c/d/i, SITLT b/l, PF/ DF = b/l, no edema noted, minimal erythema around incision side, no drainage, new dressing placed. Vital Signs Temp 99.1 F 05/09/17 07:30 Pulse 81 05/09/17 07:30 Resp 18 05/09/17 13:01 BP 103/58 05/09/17 07:30 Pulse Ox 96 05/09/17 07:30 Intake & Output 05/08/17 05/09/17 05/09/17 18:59 06:59 18:59 Intake Total 1025 590 Output Total 750 Balance 275 590 Intake: Oral 1025 590 Output: Urine 750 Other: Estimated Void Medium # Bowel Movements 0 Assessment: Stable 61 y/o female s/p L TKA by DR. Ferraro 05/06/2017. Plan: - Conitnue PT - Continue coumadin as prescribed - Follow up with Dr. Ferraro within 10 days for suture check - Percocet for pain
[2017-05-09 14:37] VITALS: BP 97/61
== END 2017-05-09 14:25 | disposition home health service (06) | DRG 470 ==
LOC: AA 05:39 → SSU 12:32
PROVIDERS: ADMIT Orthopaedic Surgery Adult Reconstructive Orthopaedic Surgery; ATTEND Internal Medicine
PROC: 0SRD0J9 Replacement of Left Knee Joint with Synthetic Substitute, Cemented, Open Approach (ICD-10-PCS; principal; 2017-05-06 07:30)
DX: M17.12 Unilateral primary osteoarthritis, left knee (principal); E05.90 Thyrotoxicosis, unspecified without thyrotoxic crisis or storm; G40.909 Epilepsy, unspecified, not intractable, without status epilepticus; F17.210 Nicotine dependence, cigarettes, uncomplicated; I10 Essential (primary) hypertension; E78.00 Pure hypercholesterolemia, unspecified; F41.8 Other specified anxiety disorders; F11.90 Opioid use, unspecified, uncomplicated; K21.9 Gastro-esophageal reflux disease without esophagitis; M85.862 Other specified disorders of bone density and structure, left lower leg; Z88.1 Allergy status to other antibiotic agents; Z88.5 Allergy status to narcotic agent; Z82.49 Family history of ischemic heart disease and other diseases of the circulatory system; Z88.0 Allergy status to penicillin; Z85.3 Personal history of malignant neoplasm of breast; Z72.89 Other problems related to lifestyle; Z80.3 Family history of malignant neoplasm of breast
CPT/HCPCS: 36415; 71045; 80048; 83735; 84436; 84443; 85014; 85018; 85049; 85610; 88305; 88311; A9270-GY; C1776; J1100; J1170; J1650; J2250; J2270; J2405; J2704; J3010; J3360; J3370; J7614

== ENCOUNTER 2020-05-24 09:55 | Inpatient (IN) ==
[2020-05-24] MEDS ORDERED: NS 0.9% 1000 ml BAG 1,000 ML IV.FLUID IV ONE ×2 (10:58)
[2020-05-24] MEDS ORDERED: LORazepam 2 mg VIAL 1 ml IV PUSH ONE ×2 (11:14→14:43)
[2020-05-24] MEDS ORDERED: Lorazepam PYXIS KEY PRN ×2 (11:14→14:43)
[2020-05-24 11:46] LABS: Hematocrit 34 % (35-47); Hemoglobin 11.9 g/dL (12.0-16.0); Mean Corpuscular HGB Conc 35 g/dL (31-36); Mean Corpuscular Hemoglobin 31 pg (27-31); Mean Corpuscular Volume 90 fL (80-97); Mean Platelet Volume 6.2 fL (7.4-10.4); Platelet Count 759 10^3/uL (150-450); Red Cell Distribution Width 13 % (10-15); White Blood Count 22.1 10^3/uL (3.5-10.8)
[2020-05-24 12:05] LABS: ALT 105 U/L (7-52); AST 113 U/L (13-39); Albumin 3.4 g/dL (3.2-5.2); Albumin/Globulin Ratio 0.8 (1-3); Alkaline Phosphatase 890 U/L (34-104); Anion Gap 10 mmol/L (2-11); Blood Urea Nitrogen 13 mg/dL (6-24); C Reactive Protein 388.45 mg/L (<8.01); CO2 Carbon Dioxide 26 mmol/L (22-32); Calcium 10.1 mg/dL (8.6-10.3); Chloride 99 mmol/L (101-111); EGFR African American 86.4 (>60); EGFR Non-African American 71.4 (>60); Globulin 4.4 g/dL (2-4); Glucose 105 mg/dL (70-100); Potassium 4.2 mmol/L (3.5-5.0); Sodium 135 mmol/L (135-145); Total Protein 7.8 g/dL (6.4-8.9)
[2020-05-24 12:06] LABS: Troponin I 0.12 ng/mL (<0.03)
[2020-05-24 12:16] LABS: Activated Partial Thrombo Time 35.4 seconds (26.0-38.0); INR 1.46 (0.82-1.09)
[2020-05-24] MEDS ORDERED: cefTRIAXone 1 gm/50 mL NS BAG 1 GM/50 ML BAG IV ONE (12:18)
[2020-05-24 12:22] LABS: ABS Basophils 0.1 10^3/ul (0-0.2); ABS Lymphocytes 1.2 10^3/ul (1.0-4.8); ABS Monocytes 1.6 10^3/ul (0-0.8); ABS Neutrophils 19.2 10^3/ul (1.5-7.7); Eosinophil % 0.1 %; Lymphocyte % 5.4 %
[2020-05-24 13:12] LABS: T4, Total 7.91 mcg/dL (6.09-12.23)
[2020-05-24 13:15] LABS: TSH Ultra Thyroid Stim Horm 0.05 mcIU/mL (0.34-5.60)
[2020-05-24 13:29] LABS: Vitamin D Total 25(OH) 55.8 ng/mL (20-50)
[2020-05-24 14:28] LABS: Urine Appearance Clear; Urine Bilirubin Negative (Negative); Urine Blood Negative (Negative); Urine Color Yellow; Urine Glucose Negative (Negative); Urine Ketones Negative (Negative); Urine Nitrite Negative (Negative); Urine Protein Negative (Negative); Urine Specific Gravity 1.006 (1.010-1.030); Urine Urobilinogen Positive (Negative)
[2020-05-24] MEDS ORDERED: Nicotine GUM 2MG FRUIT FLAVOR PO PRN (14:45)
[2020-05-24] MEDS ORDERED: Iohexol 350 (CONTRAST) 500 ML MDV IV ONE (14:47)
[2020-05-24 15:05] LABS: Amylase 15 U/L (29-103); Lipase 17 U/L (11.0-82.0)
[2020-05-24 15:58] LABS: Troponin I 0.04 ng/mL (<0.03)
[2020-05-24] MEDS ORDERED: Azithromycin 500 mg/250 mL NS IVPB ONE (16:30)
[2020-05-24] MEDS: CMCS: Clobazam 10 mg TAB (NF) 10 MG TAB PO SCH (21:59)
[2020-05-24] MEDS: CMCS: Vilazodone 40 mg TAB (NF) PO SCH (22:01)
[2020-05-24] MEDS: Heparin 5000 UNITS/ML 1 mL VIAL SUBCUT SCH (22:03)
[2020-05-25] MEDS: Heparin 5000 UNITS/ML 1 mL VIAL SUBCUT SCH ×3 (05:28→22:06)
[2020-05-25] MEDS: CMCS: Clobazam 10 mg TAB (NF) 10 MG TAB PO SCH ×2 (08:25→22:03)
[2020-05-25] MEDS: Cholecalciferol (VIT D3) 1,000 unit TAB PO SCH (08:25)
[2020-05-25 08:38] LABS: INR 1.56 (0.82-1.09)
[2020-05-25 08:51] LABS: ABS Basophils 0.1 10^3/ul (0-0.2); ABS Lymphocytes 1.7 10^3/ul (1.0-4.8); ABS Monocytes 1.5 10^3/ul (0-0.8); ABS Neutrophils 14.5 10^3/ul (1.5-7.7); Eosinophil % 0.2 %; Hematocrit 31 % (35-47); Hemoglobin 10.7 g/dL (12.0-16.0); Lymphocyte % 9.4 %; Mean Corpuscular HGB Conc 34 g/dL (31-36); Mean Corpuscular Hemoglobin 31 pg (27-31); Mean Corpuscular Volume 90 fL (80-97); Mean Platelet Volume 6.3 fL (7.4-10.4); Platelet Count 726 10^3/uL (150-450); Red Blood Count 3.47 10^6 /uL (3.70-4.87); Red Cell Distribution Width 13 % (10-15); White Blood Count 17.8 10^3/uL (3.5-10.8)
[2020-05-25 09:43] LABS: Albumin 3.1 g/dL (3.2-5.2); Albumin/Globulin Ratio 0.8 (1-3); BUN/Creatinine Ratio 13.1 (8-20); Calcium 9.6 mg/dL (8.6-10.3); EGFR African American 119.9 (>60); EGFR Non-African American 99.1 (>60); Globulin 3.8 g/dL (2-4); Potassium 3.8 mmol/L (3.5-5.0); Total Bilirubin 0.6 mg/dL (0.2-1.0); Total Protein 6.9 g/dL (6.4-8.9)
[2020-05-25] MEDS: cefTRIAXone 1 gm/50 mL NS BAG 1 GM/50 ML BAG IVPB SCH (11:22)
[2020-05-25 14:42] LABS: Hepatitis B Surface Antigen Nonreactive (Nonreactive)
[2020-05-25 14:59] LABS: Hepatitis B Surface Ab Not Immune (Immune); Hepatitis C Antibody Negative (Negative)
[2020-05-25] MEDS: Nicotine PATCH 7 MG/24 HR PATCH TRANSDERM SCH ×2 (14:59→15:09)
[2020-05-25] MEDS ORDERED: Azithromycin 500 mg/250 ml NS 500 MG/250 ML BAG IVPB SCH (16:00)
[2020-05-25] MEDS: CMCS: Vilazodone 40 mg TAB (NF) PO SCH (22:06)
[2020-05-26 07:10] LABS: ABS Basophils 0.1 10^3/ul (0-0.2); ABS Eosinophils 0.2 10^3/ul (0-0.6); ABS Lymphocytes 1.9 10^3/ul (1.0-4.8); ABS Neutrophils 10.6 10^3/ul (1.5-7.7); Eosinophil % 1.3 %; Hematocrit 34 % (35-47); Hemoglobin 11.7 g/dL (12.0-16.0); Lymphocyte % 13.5 %; Mean Corpuscular HGB Conc 35 g/dL (31-36); Mean Corpuscular Hemoglobin 31 pg (27-31); Mean Corpuscular Volume 90 fL (80-97); Mean Platelet Volume 6.2 fL (7.4-10.4); Nucleated Red Blood Cells % 0.1; Platelet Count 823 10^3/uL (150-450); Red Blood Count 3.76 10^6 /uL (3.70-4.87); Red Cell Distribution Width 13 % (10-15); White Blood Count 13.8 10^3/uL (3.5-10.8)
[2020-05-26] MEDS: Cholecalciferol (VIT D3) 1,000 unit TAB PO SCH (07:15)
[2020-05-26] MEDS: CMCS: Clobazam 10 mg TAB (NF) 10 MG TAB PO SCH (07:15)
[2020-05-26] MEDS: Nicotine PATCH 7 MG/24 HR PATCH TRANSDERM SCH ×2 (07:16→10:04)
[2020-05-26 07:25] LABS: Calcium 9.7 mg/dL (8.6-10.3); EGFR African American 124.6 (>60); EGFR Non-African American 102.9 (>60); Potassium 3.6 mmol/L (3.5-5.0)
[2020-05-26] MEDS: Heparin 5000 UNITS/ML 1 mL VIAL SUBCUT SCH ×2 (07:28→13:55)
[2020-05-26] MEDS ORDERED: Propofol 10 MG/ML 20 ML BTL ONE (12:45)
[2020-05-26] MEDS ORDERED: Lidocaine 2% PF 5 ML VIAL ONE (12:45)
[2020-05-26] MEDS ORDERED: Succinylcholine 200 mg VIAL 20 mg/ml 10 ml VIAL (200 mg) ONE (12:46)
[2020-05-26] MEDS ORDERED: fentaNYL 100 mcg/2 ml 50 MCG/ML VIAL ONE (12:46)
[2020-05-26] MEDS ORDERED: Midazolam 2 mg/2 ml VIAL 1 mg/ml 2 ml VIAL (2 mg) ONE (12:46)
[2020-05-26] MEDS ORDERED: Rocuronium 50 mg VIAL 10 mg/ml 5 ml VIAL (50 mg) ONE (12:46)
[2020-05-26] MEDS ORDERED: Benzocaine/Butamben/Tetracain (CETACAINE - SINGLE USE) 5 gm TOPICAL ONE (13:03)
[2020-05-26] MEDS ORDERED: Ondansetron 4 mg VIAL 2 MG/ML 2 ml VIAL ONE (13:42)
[2020-05-26] MEDS ORDERED: Dexamethasone IV 4 MG/ML VIAL 1 ml VIAL ONE (13:42)
[2020-05-26] MEDS ORDERED: Naloxone 0.4 mg VIAL 0.4 mg/ml 1 ml VIAL IV PRN (13:45)
[2020-05-26] MEDS ORDERED: DiMENhydriNATE IV 50 mg/ml 1 ml VIAL IV PUSH PRN (13:45)
[2020-05-26] MEDS ORDERED: fentaNYL 100 mcg/2 ml 50 MCG/ML VIAL IV PRN (13:45)
[2020-05-26] MEDS ORDERED: Phenylephrine 40 mcg/mL 10mL (400mcg) SYRINGE ONE (13:47)
[2020-05-26] MEDS ORDERED: Acetaminophen IV 1 GM/100ML 100 ML ONE (13:48)
[2020-05-26] MEDS: cefTRIAXone 1 gm/50 mL NS BAG 1 GM/50 ML BAG IVPB SCH (14:45)
[2020-05-26 17:18] VITALS: BP 111/66
[2020-05-26] MEDS ORDERED: Azithromycin 500 mg/250 ml NS 500 MG/250 ML BAG IVPB SCH (20:00)
[2020-05-26] MEDS ORDERED: cefTRIAXone 1 gm/50 mL NS BAG 1 GM/50 ML BAG IVPB SCH (20:00)
[2020-05-30 11:48] LABS: Anaplasma phagocytophilum Negative (Negative); B. miyamotoi PCR, B Negative (Negative); Babesia divergens/MO-1 Negative (Negative); Babesia ducani Negative (Negative); Ehrlichia chaffeensis Negative (Negative); Ehrlichia ewingii/canis Negative (Negative); Ehrlichia muris eauclairensis Negative (Negative)
== END 2020-05-26 17:00 | disposition home or self-care (01) | DRG 168 ==
LOC: ED 09:55 → MED 09:55 → OBSVTOIN 14:31 → MED 21:02
PROVIDERS: ADMIT Internal Medicine; ATTEND Internal Medicine

== ENCOUNTER 2021-09-26 01:48 | Inpatient (IN) ==
[2021-09-26] MEDS ORDERED: NS 0.9% 1000 ml BAG 1,000 ML IV ONE (02:34)
[2021-09-26] MEDS ORDERED: Aztreonam 2 GM in NS 0.9% 50 ML 50 ML IVPB ONE (02:36)
[2021-09-26] MEDS ORDERED: NS 0.9% 50 ML 50 ML ONE (03:43)
[2021-09-26 03:48] LABS: Hematocrit 38 % (35-47); Hemoglobin 12.7 g/dL (12.0-16.0); Mean Corpuscular HGB Conc 34 g/dL (31-36); Mean Corpuscular Hemoglobin 31 pg (27-31); Mean Corpuscular Volume 91 fL (80-97); Mean Platelet Volume 6.6 fL (7.4-10.4); Platelet Count 782 10^3/uL (150-450); Red Blood Count 4.11 10^6 /uL (3.70-4.87); Red Cell Distribution Width 14 % (10-15); White Blood Count 28.8 10^3/uL (3.5-10.8)
[2021-09-26 04:09] LABS: ABS Basophils 0.2 10^3/ul (0-0.2); ABS Lymphocytes 0.6 10^3/ul (1.0-4.8); ABS Monocytes 1.7 10^3/ul (0-0.8); ABS Neutrophils 26.3 10^3/ul (1.5-7.7); Eosinophil % 0.1 %; Lymphocyte % 2.1 %
[2021-09-26 05:51] LABS: Activated Partial Thrombo Time 31.3 seconds (26.0-38.0); Fibrinogen 613.8 mg/dL (110.8-404.3); INR 1.9 (0.86-1.15)
[2021-09-26 05:57] LABS: Erythrocyte Sed Rate 100 mm/Hr (0-29)
[2021-09-26] MEDS ORDERED: Morphine 2 MG/ML SYRINGE IV ONE (08:47)
[2021-09-26 08:49] LABS: Albumin/Globulin Ratio 1.1 (1-3); C Reactive Protein 442.11 mg/L (<8.01); Calcium 8.6 mg/dL (8.6-10.3); Globulin 2.8 g/dL (2-4); Potassium 4.9 mmol/L (3.5-5.0); Total Bilirubin 0.5 mg/dL (0.2-1.0); Total Protein 5.8 g/dL (6.4-8.9); eGFR CKD-EPI 95.9 (>60)
[2021-09-26] MEDS: CMC:OMEGA-3 FATTY ACID 1000 mg(NF) PO SCH (10:32)
[2021-09-26] MEDS: CloBAZam 10 mg TAB (NF) PO SCH (10:33)
[2021-09-26] MEDS: Cholecalciferol (VIT D3) 1,000 unit TAB PO SCH (10:33)
[2021-09-26] MEDS: Vitamin THERAPEUTIC TAB PO SCH (10:34)
[2021-09-26] MEDS: Prochlorperazine 5 mg/ml 2 ml VIAL (10 mg) IV PRN (11:26)
[2021-09-26] MEDS ORDERED: Lidocaine 1% MPF 5 ML VIAL ONE (13:04)
[2021-09-26] MEDS ORDERED: Lidocaine 1% MPF 2 ML VIAL INJ ONE (13:04)
[2021-09-26] MEDS ORDERED: Alteplase 10 MG/50 ML NS for CHEST TUBE instillation INTRAPLEUR PRN (13:45)
[2021-09-26 14:24] LABS: Body Fluid WBC 10511 /mcL
[2021-09-26 14:29] LABS: Body Fluid Appearance Cloudy; Body Fluid Band 1 %; Body Fluid Mono 12 %; Body Fluid Source Pleural Fluid; Body Fluid Total Cells Counted 200
[2021-09-26 14:30] LABS: Body Fluid Color Yellow
[2021-09-26] MEDS: Heparin 5000 UNITS/ML 1 mL VIAL SUBCUT SCH ×2 (14:46→20:00)
[2021-09-26] MEDS: metroNIDAZOLE IV 500 MG/100ML 500 MG/100 ML BAG IVPB SCH (19:07)
[2021-09-26 20:51] LABS: Urine Appearance Turbid; Urine Bilirubin Negative (Negative); Urine Blood 1+ (Negative); Urine Color Yellow; Urine Glucose Negative (Negative); Urine Ketones Negative (Negative); Urine Nitrite Negative (Negative); Urine Protein 2+(100 mg/dL) (Negative); Urine Specific Gravity 1.027 (1.002-1.030); Urine Urobilinogen Negative (Negative)
[2021-09-26 20:57] LABS: Urine Bacteria 1+ (Absent); Urine Red Blood Cell 3+(>10/hpf) (Absent); Urine Squamous Epithelial Cell Present (Absent); Urine White Blood Cell 3+(>20/hpf) (Absent)
[2021-09-26] MEDS: CMC:Vilazodone 40 mg TAB (NF) PO SCH (21:23)
[2021-09-27] MEDS: metroNIDAZOLE IV 500 MG/100ML 500 MG/100 ML BAG IVPB SCH ×3 (01:53→19:04)
[2021-09-27 06:26] LABS: Hematocrit 35 % (35-47); Mean Corpuscular HGB Conc 34 g/dL (31-36); Mean Corpuscular Hemoglobin 31 pg (27-31); Mean Corpuscular Volume 91 fL (80-97); Mean Platelet Volume 6.6 fL (7.4-10.4); Platelet Count 662 10^3/uL (150-450); Red Blood Count 3.85 10^6 /uL (3.70-4.87); Red Cell Distribution Width 14 % (10-15); White Blood Count 14.2 10^3/uL (3.5-10.8)
[2021-09-27 06:43] LABS: ALT 18 U/L (7-52); Albumin 2.8 g/dL (3.2-5.2); Alkaline Phosphatase 233 U/L (35-149); Blood Urea Nitrogen 14 mg/dL (6-24); CO2 Carbon Dioxide 23 mmol/L (22-32); Calcium 8.8 mg/dL (8.6-10.3); Chloride 95 mmol/L (101-111); Globulin 2.8 g/dL (2-4); Glucose 78 mg/dL (70-100); Magnesium 1.8 mg/dL (1.9-2.7); Sodium 128 mmol/L (135-145); Total Protein 5.6 g/dL (6.4-8.9); eGFR CKD-EPI 86.9 (>60)
[2021-09-27 06:47] LABS: Anion Gap 10 mmol/L (2-11)
[2021-09-27] MEDS ORDERED: Magnesium Sulfate IV 1GM/100ML 1 GM/100 ML BAG IV ONE (08:02)
[2021-09-27] MEDS: CloBAZam 10 mg TAB (NF) PO SCH (08:15)
[2021-09-27] MEDS: Cholecalciferol (VIT D3) 1,000 unit TAB PO SCH (08:15)
[2021-09-27] MEDS: Vitamin THERAPEUTIC TAB PO SCH (08:16)
[2021-09-27 08:33] LABS: ABS Lymphocytes 0.6 10^3/ul (1.0-4.8); ABS Monocytes 1.5 10^3/ul (0-0.8); ABS Neutrophils 12.1 10^3/ul (1.5-7.7); Eosinophil % 0.1 %; Lymphocyte % 4.4 %; Nucleated Red Blood Cells % 0.1
[2021-09-27] MEDS: CMC:OMEGA-3 FATTY ACID 1000 mg(NF) PO SCH (08:38)
[2021-09-27 09:00] LABS: RBC Morphology Normal (Normal)
[2021-09-27] MEDS ORDERED: Alteplase 10 MG/50 ML NS for CHEST TUBE instillation INTRAPLEUR ONE (09:30)
[2021-09-27] MEDS ORDERED: Alteplase (CATHFLO) 10 MG in NS 0.9% 50 ML 40 ML INTRAPLEUR SCH (17:45)
[2021-09-27] MEDS ORDERED: Alteplase (CATHFLO) 10 MG in NS 0.9% 50 ML 40 ML INTRAPLEUR ONE (19:00)
[2021-09-27] MEDS: CMC:Vilazodone 40 mg TAB (NF) PO SCH (20:28)
[2021-09-27] MEDS: Prochlorperazine 5 mg/ml 2 ml VIAL (10 mg) IV PRN (21:44)
[2021-09-28] MEDS: metroNIDAZOLE IV 500 MG/100ML 500 MG/100 ML BAG IVPB SCH ×3 (03:37→17:47)
[2021-09-28] MEDS ORDERED: Alteplase (CATHFLO) 10 MG in NS 0.9% 50 ML 40 ML INTRAPLEUR ONE (07:30)
[2021-09-28] MEDS: Prochlorperazine 5 mg/ml 2 ml VIAL (10 mg) IV PRN ×2 (08:07→20:05)
[2021-09-28] MEDS: CloBAZam 10 mg TAB (NF) PO SCH (08:51)
[2021-09-28] MEDS: Vitamin THERAPEUTIC TAB PO SCH (08:51)
[2021-09-28] MEDS: Cholecalciferol (VIT D3) 1,000 unit TAB PO SCH (08:51)
[2021-09-28] MEDS: CMC:OMEGA-3 FATTY ACID 1000 mg(NF) PO SCH (08:52)
[2021-09-28 11:00] LABS: ABS Lymphocytes 0.7 10^3/ul (1.0-4.8); ABS Monocytes 1.2 10^3/ul (0-0.8); ABS Neutrophils 6.2 10^3/ul (1.5-7.7); Eosinophil % 0.3 %; Hematocrit 34 % (35-47); Hemoglobin 11.6 g/dL (12.0-16.0); Lymphocyte % 9.1 %; Mean Corpuscular HGB Conc 34 g/dL (31-36); Mean Corpuscular Hemoglobin 31 pg (27-31); Mean Corpuscular Volume 91 fL (80-97); Mean Platelet Volume 6.1 fL (7.4-10.4); Nucleated Red Blood Cells % 0.1; Platelet Count 661 10^3/uL (150-450); Red Blood Count 3.77 10^6 /uL (3.70-4.87); Red Cell Distribution Width 14 % (10-15); White Blood Count 8.1 10^3/uL (3.5-10.8)
[2021-09-28 11:50] LABS: Albumin 2.4 g/dL (3.2-5.2); Albumin/Globulin Ratio 0.9 (1-3); Calcium 8.8 mg/dL (8.6-10.3); Globulin 2.7 g/dL (2-4); Potassium 4.3 mmol/L (3.5-5.0); Total Bilirubin 0.4 mg/dL (0.2-1.0); Total Protein 5.1 g/dL (6.4-8.9); eGFR CKD-EPI 102.1 (>60)
[2021-09-28] MEDS ORDERED: Ondansetron 4 mg VIAL 2 MG/ML 2 ml VIAL IV ONE (13:08)
[2021-09-28] MEDS ORDERED: Alteplase 10 MG/50 ML NS for CHEST TUBE instillation INTRAPLEUR ONE (17:30)
[2021-09-28] MEDS: CMC:Vilazodone 40 mg TAB (NF) PO SCH (20:36)
[2021-09-28] MEDS ORDERED: Lactulose 30 ml UDC PO ONE (21:50)
[2021-09-29] MEDS: metroNIDAZOLE IV 500 MG/100ML 500 MG/100 ML BAG IVPB SCH ×3 (02:04→17:51)
[2021-09-29] MEDS: Prochlorperazine 5 mg/ml 2 ml VIAL (10 mg) IV PRN (06:14)
[2021-09-29 06:59] LABS: Hematocrit 35 % (35-47); Hemoglobin 12.3 g/dL (12.0-16.0); Mean Corpuscular HGB Conc 35 g/dL (31-36); Mean Corpuscular Hemoglobin 32 pg (27-31); Mean Corpuscular Volume 91 fL (80-97); Mean Platelet Volume 6.2 fL (7.4-10.4); Platelet Count 710 10^3/uL (150-450); Red Blood Count 3.89 10^6 /uL (3.70-4.87); Red Cell Distribution Width 14 % (10-15); White Blood Count 7.3 10^3/uL (3.5-10.8)
[2021-09-29 07:37] LABS: Calcium 8.4 mg/dL (8.6-10.3); Magnesium 1.6 mg/dL (1.9-2.7); Potassium 4.6 mmol/L (3.5-5.0); eGFR CKD-EPI 104.5 (>60)
[2021-09-29 07:57] LABS: ABS Basophils 0.1 10^3/ul (0-0.2); ABS Lymphocytes 0.9 10^3/ul (1.0-4.8); ABS Monocytes 1.3 10^3/ul (0-0.8); Eosinophil % 0.5 %; Lymphocyte % 12.1 %
[2021-09-29] MEDS ORDERED: DORNASE ALFA 1 mg/ml(NF) 5 MG in NS 0.9% 50 ML 45 ML INTRAPLEUR SCH (08:00)
[2021-09-29] MEDS ORDERED: Alteplase (CATHFLO) 10 MG in NS 0.9% 50 ML 40 ML INTRAPLEUR SCH ×2 (08:00→18:00)
[2021-09-29] MEDS: CMC:OMEGA-3 FATTY ACID 1000 mg(NF) PO SCH (08:02)
[2021-09-29] MEDS: Cholecalciferol (VIT D3) 1,000 unit TAB PO SCH (08:03)
[2021-09-29] MEDS: CloBAZam 10 mg TAB (NF) PO SCH (08:03)
[2021-09-29] MEDS ORDERED: Magnesium Sulfate 2 gm BAG 2 GM/50 ML BAG IVPB ONE (08:40)
[2021-09-29] MEDS: Vitamin THERAPEUTIC TAB PO SCH (09:48)
[2021-09-29] MEDS ORDERED: Magnesium Sulfate IV 1GM/100ML 1 GM/100 ML BAG IV ONE (11:00)
[2021-09-29] MEDS ORDERED: Ondansetron 4 mg VIAL 2 MG/ML 2 ml VIAL IV ONE (11:14)
[2021-09-29 11:52] LABS: Fluid Type, Protein, Total PLEURAL; Total Protein, BF 4.7 g/dL
[2021-09-29 12:13] LABS: Glucose, BF < 2 mg/dL
[2021-09-29] MEDS: DORNASE ALFA 1 mg/ml(NF) 5 MG in NS 0.9% 50 ML 45 ML INTRAPLEUR SCH (17:40)
[2021-09-29] MEDS: CMC:Vilazodone 40 mg TAB (NF) PO SCH (20:29)
[2021-09-30] MEDS: metroNIDAZOLE IV 500 MG/100ML 500 MG/100 ML BAG IVPB SCH ×3 (01:44→17:55)
[2021-09-30 06:17] LABS: Hematocrit 35 % (35-47); Hemoglobin 11.9 g/dL (12.0-16.0); Mean Corpuscular HGB Conc 34 g/dL (31-36); Mean Corpuscular Hemoglobin 31 pg (27-31); Mean Corpuscular Volume 91 fL (80-97); Mean Platelet Volume 6.3 fL (7.4-10.4); Platelet Count 672 10^3/uL (150-450); Red Blood Count 3.85 10^6 /uL (3.70-4.87); Red Cell Distribution Width 14 % (10-15)
[2021-09-30 06:24] LABS: ABS Lymphocytes 1.3 10^3/ul (1.0-4.8); ABS Monocytes 1.5 10^3/ul (0-0.8); ABS Neutrophils 7.2 10^3/ul (1.5-7.7); Eosinophil % 0.2 %; Lymphocyte % 12.7 %
[2021-09-30 06:35] LABS: Calcium 7.9 mg/dL (8.6-10.3); Potassium 4.5 mmol/L (3.5-5.0)
[2021-09-30] MEDS ORDERED: DORNASE ALFA 1 mg/ml 5 MG in NS 0.9% 50 ML INTRAPLEUR ONE (08:30)
[2021-09-30] MEDS ORDERED: Alteplase 10 MG/50 ML NS for CHEST TUBE instillation INTRAPLEUR ONE (08:30)
[2021-09-30] MEDS: CloBAZam 10 mg TAB (NF) PO SCH (10:23)
[2021-09-30] MEDS: Cholecalciferol (VIT D3) 1,000 unit TAB PO SCH (10:31)
[2021-09-30] MEDS: CMC:OMEGA-3 FATTY ACID 1000 mg(NF) PO SCH (10:31)
[2021-09-30] MEDS: Vitamin THERAPEUTIC TAB PO SCH (10:31)
[2021-09-30] MEDS: DORNASE ALFA 1 mg/ml(NF) 5 MG in NS 0.9% 50 ML 45 ML INTRAPLEUR SCH ×2 (13:50→23:16)
[2021-09-30 14:54] LABS: Lactate Dehydrogenase, BF 4990 U/L
[2021-09-30] MEDS: Enoxaparin 40 MG/0.4 ML SYR SUBCUT SCH (17:06)
[2021-09-30] MEDS: CMC:Vilazodone 40 mg TAB (NF) PO SCH (20:04)
[2021-10-01] MEDS: metroNIDAZOLE IV 500 MG/100ML 500 MG/100 ML BAG IVPB SCH ×2 (01:53→10:09)
[2021-10-01 05:12] LABS: ABS Basophils 0.1 10^3/ul (0-0.2); ABS Eosinophils 0.1 10^3/ul (0-0.6); ABS Lymphocytes 1.8 10^3/ul (1.0-4.8); ABS Monocytes 1.4 10^3/ul (0-0.8); ABS Neutrophils 12.5 10^3/ul (1.5-7.7); Eosinophil % 0.4 %; Hematocrit 34 % (35-47); Hemoglobin 11.5 g/dL (12.0-16.0); Lymphocyte % 11.7 %; Mean Corpuscular HGB Conc 34 g/dL (31-36); Mean Corpuscular Hemoglobin 31 pg (27-31); Mean Corpuscular Volume 91 fL (80-97); Mean Platelet Volume 6.1 fL (7.4-10.4); Nucleated Red Blood Cells % 0.1; Platelet Count 637 10^3/uL (150-450); Red Blood Count 3.72 10^6 /uL (3.70-4.87); Red Cell Distribution Width 14 % (10-15); White Blood Count 15.8 10^3/uL (3.5-10.8)
[2021-10-01 05:27] LABS: Calcium 7.8 mg/dL (8.6-10.3); Potassium 4.4 mmol/L (3.5-5.0)
[2021-10-01] MEDS: Cholecalciferol (VIT D3) 1,000 unit TAB PO SCH (10:06)
[2021-10-01] MEDS: Vitamin THERAPEUTIC TAB PO SCH (10:06)
[2021-10-01] MEDS: CloBAZam 10 mg TAB (NF) PO SCH ×2 (10:06→10:26)
[2021-10-01] MEDS: CMC:OMEGA-3 FATTY ACID 1000 mg(NF) PO SCH (10:09)
[2021-10-01] MEDS: DORNASE ALFA 1 mg/ml(NF) 5 MG in NS 0.9% 50 ML 45 ML INTRAPLEUR SCH (11:34)
[2021-10-01] MEDS: cefTRIAXone 2 gm/50 mL D5W 2 GM/50 ML BAG IV SCH (11:48)
[2021-10-01] MEDS ORDERED: NS 0.9% 500 ml BAG 500 ML IV ONE (12:41)
[2021-10-01] MEDS: Prochlorperazine 5 mg/ml 2 ml VIAL (10 mg) IV PRN ×2 (13:30→19:49)
[2021-10-01] MEDS: Enoxaparin 40 MG/0.4 ML SYR SUBCUT SCH (17:36)
[2021-10-01] MEDS: CMC:Vilazodone 40 mg TAB (NF) PO SCH (19:50)
[2021-10-02] MEDS: Ondansetron 4 mg VIAL 2 MG/ML 2 ml VIAL IV PRN ×3 (02:25→20:12)
[2021-10-02 05:31] LABS: Hematocrit 34 % (35-47); Hemoglobin 11.3 g/dL (12.0-16.0); Mean Corpuscular HGB Conc 33 g/dL (31-36); Mean Corpuscular Hemoglobin 30 pg (27-31); Mean Corpuscular Volume 91 fL (80-97); Mean Platelet Volume 5.8 fL (7.4-10.4); Platelet Count 552 10^3/uL (150-450); Red Blood Count 3.75 10^6 /uL (3.70-4.87); Red Cell Distribution Width 14 % (10-15); White Blood Count 19.6 10^3/uL (3.5-10.8)
[2021-10-02 05:54] LABS: ABS Basophils 0.1 10^3/ul (0-0.2); ABS Eosinophils 0.2 10^3/ul (0-0.6); ABS Lymphocytes 2.2 10^3/ul (1.0-4.8); ABS Monocytes 1.1 10^3/ul (0-0.8); Lymphocyte % 11.1 %; Nucleated Red Blood Cells % 0.1; RBC Morphology Normal (Normal)
[2021-10-02] MEDS: Prochlorperazine 5 mg/ml 2 ml VIAL (10 mg) IV PRN ×2 (08:22→15:06)
[2021-10-02] MEDS: Cholecalciferol (VIT D3) 1,000 unit TAB PO SCH (08:26)
[2021-10-02] MEDS: Vitamin THERAPEUTIC TAB PO SCH (08:27)
[2021-10-02] MEDS: CloBAZam 10 mg TAB (NF) PO SCH (08:27)
[2021-10-02] MEDS: CMC:OMEGA-3 FATTY ACID 1000 mg(NF) PO SCH (08:28)
[2021-10-02 09:45] LABS: C Reactive Protein 167.07 mg/L (<8.01)
[2021-10-02] MEDS ORDERED: Polyethylene Glycol 3350 17 GM PACKET PO PRN (10:37)
[2021-10-02] MEDS ORDERED: Magnesium Hydroxide LIQ 30 ML UDC PO PRN (10:37)
[2021-10-02] MEDS ORDERED: Senna TAB 8.6 mg TAB PO PRN (10:37)
[2021-10-02] MEDS: cefTRIAXone 2 gm/50 mL D5W 2 GM/50 ML BAG IV SCH (11:36)
[2021-10-02] MEDS: Enoxaparin 40 MG/0.4 ML SYR SUBCUT SCH (16:30)
[2021-10-02] MEDS: CMC:Vilazodone 40 mg TAB (NF) PO SCH (20:16)
[2021-10-03] MEDS: Prochlorperazine 5 mg/ml 2 ml VIAL (10 mg) IV PRN ×2 (05:21→20:33)
[2021-10-03 06:16] LABS: Hematocrit 35 % (35-47); Hemoglobin 11.7 g/dL (12.0-16.0); Mean Corpuscular HGB Conc 34 g/dL (31-36); Mean Corpuscular Hemoglobin 30 pg (27-31); Mean Corpuscular Volume 91 fL (80-97); Mean Platelet Volume 5.9 fL (7.4-10.4); Platelet Count 590 10^3/uL (150-450); Red Blood Count 3.85 10^6 /uL (3.70-4.87); Red Cell Distribution Width 14 % (10-15)
[2021-10-03 06:36] LABS: Calcium 7.9 mg/dL (8.6-10.3); Potassium 4.3 mmol/L (3.5-5.0); eGFR CKD-EPI 106.7 (>60)
[2021-10-03 07:28] LABS: ABS Basophils 0.1 10^3/ul (0-0.2); ABS Eosinophils 0.2 10^3/ul (0-0.6); ABS Lymphocytes 1.9 10^3/ul (1.0-4.8); ABS Monocytes 0.9 10^3/ul (0-0.8); Eosinophil % 1.1 %; Lymphocyte % 10.3 %; Nucleated Red Blood Cells % 0.1; RBC Morphology Normal (Normal)
[2021-10-03] MEDS: CloBAZam 10 mg TAB (NF) PO SCH (08:33)
[2021-10-03] MEDS: Cholecalciferol (VIT D3) 1,000 unit TAB PO SCH (08:34)
[2021-10-03] MEDS: Vitamin THERAPEUTIC TAB PO SCH (08:35)
[2021-10-03] MEDS: CMC:OMEGA-3 FATTY ACID 1000 mg(NF) PO SCH (08:35)
[2021-10-03] MEDS: cefTRIAXone 2 gm/50 mL D5W 2 GM/50 ML BAG IV SCH (11:53)
[2021-10-03] MEDS: Ondansetron 4 mg VIAL 2 MG/ML 2 ml VIAL IV PRN (12:43)
[2021-10-03] MEDS: Enoxaparin 40 MG/0.4 ML SYR SUBCUT SCH (17:09)
[2021-10-03] MEDS: CMC:Vilazodone 40 mg TAB (NF) PO SCH (20:32)
[2021-10-04 05:01] LABS: Hematocrit 33 % (35-47); Hemoglobin 11.2 g/dL (12.0-16.0); Mean Corpuscular HGB Conc 34 g/dL (31-36); Mean Corpuscular Hemoglobin 31 pg (27-31); Mean Corpuscular Volume 90 fL (80-97); Mean Platelet Volume 5.8 fL (7.4-10.4); Platelet Count 603 10^3/uL (150-450); Red Blood Count 3.66 10^6 /uL (3.70-4.87); Red Cell Distribution Width 14 % (10-15); White Blood Count 13.9 10^3/uL (3.5-10.8)
[2021-10-04 05:09] LABS: ABS Basophils 0.1 10^3/ul (0-0.2); ABS Eosinophils 0.2 10^3/ul (0-0.6); ABS Lymphocytes 1.6 10^3/ul (1.0-4.8); ABS Monocytes 0.8 10^3/ul (0-0.8); ABS Neutrophils 11.3 10^3/ul (1.5-7.7); Eosinophil % 1.2 %; Lymphocyte % 11.6 %; Nucleated Red Blood Cells % 0.1
[2021-10-04 05:34] LABS: Albumin 2.2 g/dL (3.2-5.2); Magnesium 1.8 mg/dL (1.9-2.7)
[2021-10-04] MEDS ORDERED: Magnesium Sulfate IV 1GM/100ML 1 GM/100 ML BAG IV ONE (07:09)
[2021-10-04 07:52] LABS: Calcium 7.8 mg/dL (8.6-10.3); Potassium 4.5 mmol/L (3.5-5.0); eGFR CKD-EPI 107.3 (>60)
[2021-10-04] MEDS: Prochlorperazine 5 mg/ml 2 ml VIAL (10 mg) IV PRN (08:58)
[2021-10-04] MEDS: CMC:OMEGA-3 FATTY ACID 1000 mg(NF) PO SCH (09:05)
[2021-10-04] MEDS: Vitamin THERAPEUTIC TAB PO SCH (09:06)
[2021-10-04] MEDS: CloBAZam 10 mg TAB (NF) PO SCH (09:06)
[2021-10-04] MEDS: Cholecalciferol (VIT D3) 1,000 unit TAB PO SCH (09:07)
[2021-10-04] MEDS: Ondansetron 4 mg VIAL 2 MG/ML 2 ml VIAL IV PRN ×2 (11:48→20:52)
[2021-10-04] MEDS: cefTRIAXone 2 gm/50 mL D5W 2 GM/50 ML BAG IV SCH (11:48)
[2021-10-04] MEDS: Enoxaparin 40 MG/0.4 ML SYR SUBCUT SCH (16:00)
[2021-10-04] MEDS: CMC:Vilazodone 40 mg TAB (NF) PO SCH (20:52)
[2021-10-05] MEDS: Prochlorperazine 5 mg/ml 2 ml VIAL (10 mg) IV PRN (09:32)
[2021-10-05] MEDS: CMC:OMEGA-3 FATTY ACID 1000 mg(NF) PO SCH (09:32)
[2021-10-05] MEDS: Cholecalciferol (VIT D3) 1,000 unit TAB PO SCH (09:41)
[2021-10-05] MEDS: Vitamin THERAPEUTIC TAB PO SCH (09:41)
[2021-10-05] MEDS: CloBAZam 10 mg TAB (NF) PO SCH (09:41)
[2021-10-05] MEDS: cefTRIAXone 2 gm/50 mL D5W 2 GM/50 ML BAG IV SCH (12:01)
[2021-10-05] MEDS: Enoxaparin 40 MG/0.4 ML SYR SUBCUT SCH (15:37)
[2021-10-05 16:25] VITALS: BP 96/57
== END 2021-10-05 17:15 | disposition home health service (06) | DRG 186 ==
LOC: ED 01:48 → SUATTDRO 09:28 → EDHOLD 09:28 → MED 14:25
PROVIDERS: ADMIT Internal Medicine; ATTEND Hospitalist

== ENCOUNTER 2024-02-13 07:05 | Observation (INO) ==
[~2024-02-13 07:05] MED LIST changes: -Buffered Lidocaine 0.9% SYRIN* 5 ML/SYR SYRINGE INTRADERM ONE; +Naloxone 0.4 mg VIAL 0.4 mg/ml 1 ml VIAL IV PRN
[2024-02-13] MEDS ORDERED: Tranexamic Acid 1 GM/100ML BAG 2,000 MG/200 ML BAG IV ONE (07:22)
[2024-02-13] MEDS ORDERED: ceFAZolin 2 GM PREMIX 2 GM/50 ML BAG ONE (07:22)
[2024-02-13] MEDS ORDERED: Dexamethasone IV 4 MG/ML VIAL 1 ml VIAL ONE ×2 (07:35→07:58)
[2024-02-13] MEDS ORDERED: Midazolam 2 mg/2 ml VIAL 1 mg/ml 2 ml VIAL (2 mg) ONE (07:35)
[2024-02-13] MEDS ORDERED: ROPIVACAINE 5 MG/ML 30 ML BTL (0.5%) ONE ×2 (07:36)
[2024-02-13 07:43] LABS: Rapid COVID-19 Molecular Undetected (Undetected)
[2024-02-13] MEDS ORDERED: Lidocaine 2% PF 5 ML VIAL ONE (07:58)
[2024-02-13] MEDS ORDERED: Ondansetron 4 mg VIAL 2 MG/ML 2 ml VIAL ONE ×2 (07:58→11:17)
[2024-02-13] MEDS ORDERED: Propofol 10 MG/ML 20 ML BTL ONE (07:58)
[2024-02-13] MEDS ORDERED: fentaNYL 100 mcg/2 ml 50 MCG/ML VIAL ONE ×4 (07:59→12:00)
[2024-02-13] MEDS ORDERED: Phenylephrine 40 mcg/mL 10mL (400mcg) SYRINGE ONE (08:40)
[2024-02-13] MEDS ORDERED: EPINEPHrine SYR 0.1MG/ML 10 ml SYRINGE IV ONE (08:54)
[2024-02-13] MEDS ORDERED: Acetaminophen IV 1 GM/100ML 1,000 MG/100 ML BAG IV ONE (08:54)
[2024-02-13] MEDS ORDERED: HYDROmorphone 0.5 MG/0.5 ML SYRINGE ONE (09:08)
[2024-02-13] MEDS ORDERED: Phenylephrine IV 10 MG/ML 1 ml VIAL ONE (09:32)
[2024-02-13] MEDS ORDERED: Lactulose 30 ml UDC PO PRN (11:09)
[2024-02-13] MEDS ORDERED: Magnesium Hydroxide LIQ 30 ML UDC PO PRN (11:09)
[2024-02-13] MEDS: fentaNYL 100 mcg/2 ml 50 MCG/ML VIAL IV PRN (11:19)
[2024-02-13] MEDS: Ondansetron 4 mg VIAL 2 MG/ML 2 ml VIAL IV PRN (11:19)
[2024-02-13] MEDS ORDERED: HYDROmorphone 1 MG/1 ML SYRINGE ONE (13:07)
[2024-02-13] MEDS ORDERED: Naloxone 0.4 mg VIAL 0.4 mg/ml 1 ml VIAL IV PRN (13:10)
[2024-02-13] MEDS: HYDROmorphone 1 MG/1 ML SYRINGE IV PRN (13:15)
[2024-02-13] MEDS: Lactated Ringers 1000 ml BAG 1,000 ML IV SCH ×2 (14:00→14:57)
[2024-02-13] MEDS: ceFAZolin 2 GM PREMIX 2 GM/50 ML BAG IV SCH (16:09)
[2024-02-13] MEDS: Morphine 2 MG/ML SYRINGE IV PRN (19:23)
[2024-02-13] MEDS: Cholecalciferol (VIT D3) 1,000 unit TAB PO SCH (21:14)
[2024-02-13] MEDS: Magnesium Hydroxide LIQ 30 ML UDC PO SCH (21:15)
[2024-02-13] MEDS: VILAZODONE 40 MG PO SCH (21:17)
[2024-02-13] MEDS: Buffered Lidocaine 1% SYRIN 1 ml INTRADERM ONE (22:21)
[2024-02-14] MEDS: Ondansetron 4 mg VIAL 2 MG/ML 2 ml VIAL IV PRN (00:25)
[2024-02-14] MEDS: Prochlorperazine 5 mg/ml 2 ml VIAL (10 mg) IV PRN (02:04)
[2024-02-14] MEDS: Calcium Carb (TUMS) 500 mg CHEW TAB PO PRN (05:35)
[2024-02-14 06:15] VITALS: BP 104/76
[2024-02-14] MEDS: Ondansetron ODT 4 mg TAB 4 MG TAB PO PRN (07:40)
[2024-02-14] MEDS: Vitamin THERAPEUTIC TAB PO SCH (08:20)
[2024-02-14 08:41] LABS: Hematocrit 33.8 % (35-45); Hemoglobin 11.5 g/dL (11.5-14.3); Mean Platelet Volume 7.1 fL (7.5-11.2); Platelet Count 408 10^3/uL (150-450)
[2024-02-14 09:19] LABS: Calcium 8.7 mg/dL (8.6-10.3); Creatinine, Serum 0.72 mg/dL (0.51-0.95); Potassium 4.7 mmol/L (3.5-5.0); eGFR CKD-EPI 91.6 (>60)
[2024-02-14] MEDS: CLOBAZAM 10 MG PO SCH (10:58)
[2024-02-14] MEDS: CloBAZam 10 mg TAB (NF) PO SCH (11:40)
[2024-02-14] MEDS ORDERED: CloBAZam 10 mg TAB (NF) PO SCH (21:00)
== END 2024-02-14 13:15 | disposition home or self-care (01) ==
LOC: SSU 07:05 → OR 07:05
PROVIDERS: ADMIT Orthopaedic Surgery Adult Reconstructive Orthopaedic Surgery; ATTEND Orthopaedic Surgery Adult Reconstructive Orthopaedic Surgery